=== PATIENT | male | born 1945 | race Caucasian/White ===

== ENCOUNTER → 2024-01-19 14:11 | Outpatient (REF) | payer MEDICARE, OTHER, SELFPAY | LOC: DHCBS MAIN 14:11 | PROVIDERS: ATTENDING PHYSICIAN Nuclear Medicine Nuclear Cardiology; FAMILY PHYSICIAN Internal Medicine | DX: I34.0 Nonrheumatic mitral (valve) insufficiency (principal) | CPT/HCPCS: 93306 ==

== ENCOUNTER → 2024-05-17 12:08 | Outpatient (REF) | payer MEDICARE, OTHER, SELFPAY ==
[2024-05-17 13:05] LABS: % Basophils 0.6 % (0-2); % Eosinophils 3.9 % (0-6); % Immature Granulocytes 0.1 % (0-0.5); % Lymphocytes 32.9 % (20.5-51.1); % Neutrophils 52.5 % (42.2-75.2); Absolute Basophils 0.1 10^3/uL (0-0.2); Absolute Eosinophils 0.3 10^3/uL (0-0.7); Absolute Lymphocytes 2.5 10^3/uL (1.2-3.4); Absolute Monocytes 0.8 10^3/uL (0.1-0.6); Hematocrit 36.2 % (39.0-52.0); Hemoglobin 12.4 g/dL (13.0-18.0); Mean Corp Hgb Conc. 34.3 g/dL (33.0-37.0); Mean Corpuscular Volume 93.3 fL (80.0-94.0); Mean Platelet Volume 10.1 fL (7.4-10.4); Nucleated Red Blood Cells % 0 % (-); Platelet Count 231 10^3/uL (130-400); Red Blood Cell Count 3.88 10^6/uL (4.70-6.10); Red Cell Dist. Width 13.2 % (11.5-14.5); Reticulocyte Count 1.4 % (0.4-2.8); White Blood Cell Count 7.7 10^3/uL (4.8-10.8)
[2024-05-17 13:33] LABS: ALT (SGPT) 19 U/L (0-50); AST (SGOT) 37 U/L (17-59); Albumin 4.4 g/dl (3.5-5.0); Alkaline Phosphatase 74 U/L (38-126); Blood Urea Nitrogen 22 mg/dl (9-20); Calcium 10.3 mg/dl (8.4-10.2); Carbon Dioxide 30 mmol/L (22-30); Chloride 100 mmol/L (98-107); Glucose 91 mg/dl (70-99); HDL Cholesterol 105 mg/dl; Iron 132 ug/dl (49-181); LDL Cholesterol, Calculated 84 mg/dl; Potassium 5.1 mmol/L (3.5-5.1); Sodium 139 mmol/L (135-145); Total Bilirubin 0.8 mg/dl (0.2-1.3); Total Cholesterol 198 mg/dl (50-199); Total Protein 7.3 g/dl (6.3-8.2); Triglyceride 45 mg/dl (10-149); Very Low Density Lipoprotein 9 mg/dl (0-30); eGFR > 60.00
[2024-05-17 13:42] LABS: Percent Saturation 53 % (20-50); Total Iron Binding Capacity 247 ug/dl (261-462)
[2024-05-17 14:07] LABS: PSA, Total - Screen 2.52 ng/ml (0.0-4.0); TSH 0.86 uIU/ml (0.47-4.68)
== END ==
LOC: REG 12:08
PROVIDERS: ATTENDING PHYSICIAN Internal Medicine
DX: J44.9 Chronic obstructive pulmonary disease, unspecified (principal); D64.89 Other specified anemias; K62.4 Stenosis of anus and rectum; Z93.3 Colostomy status; R79.89 Other specified abnormal findings of blood chemistry; F32.5 Major depressive disorder, single episode, in full remission; Z12.5 Encounter for screening for malignant neoplasm of prostate; Z00.00 Encounter for general adult medical examination without abnormal findings
CPT/HCPCS: 36415; 80053; 80061; 83540; 83550; 84443; 85025; 85045; G0103

== ENCOUNTER 2025-01-09 11:03 | Emergency (ER) | payer MEDICARE, OTHER, SELFPAY ==
[2025-01-09 11:08] VITALS: BP 114/74
[2025-01-09 11:29] VITALS: BP 127/66
[2025-01-09 11:30] VITALS: BMI 17.1
[2025-01-09 11:31] VITALS: BP 127/66
[2025-01-09 12:00] VITALS: BP 101/59; BP 127/52
--- NOTE | 2025-01-09 12:00 | ED.GENMED ---
History of Present Illness
General
Chief Complaint: Swelling
Time Seen by Provider: 01/09/25 11:50
History of Present Illness
History of Present Illness:
79-year-old male presents to the emergency department for evaluation of bilateral hand and bilateral feet swelling has been ongoing for the past 2 to 3 days. He denies any pain associated with this, swelling does not seem to extend into the lower
legs. Denies any chest pain or shortness of breath. On arrival was noted to be hypoxic however was not wearing his chronic oxygen, he is improved on supplemental O2.
Past History
Past History
ED Past Medical History: None
ED Past Surgical History: None
Review of Systems
Review of Systems
Allergies reviewed?: Yes
All Other Systems: ROS reviewed and negative except as documented in HPI and ROS
Phy Exam
Physical Exam
Physical Exam:
GEN: Well appearing, NAD, WDWN
Eyes: PERRLA, EOMs intact, no scleral icterus
HENT: NCAT, oral mucosa moist, no JVD, no cervical adenopathy.
Lungs: CTAB, no wheezes, rales, rhonchi, normal chest wall excursion
Cardiac: RRR, no M/R/G, no peripheral edema. Radial pulses 2+ bilat
Abdomen: S, NT, ND, NABS, no masses or hepatosplenomegaly
Neuro: AO x 3, no focal deficits to BUE/BLE, normal sensation throughout
MSK: No gross deformity or ecchymosis. No edema. No digital clubbing
Skin: Petechial/purpuric lesions widely distributed to the dorsal hands as well as dorsal feet bilaterally, there is diffuse edema to all 4 extremities, petechiae extending to the mid lower legs
Psych: Calm, cooperative, proper hygiene
Scores
Heart Failure Risk
Heart Failure Risk Score: Not Applicable
Course
Orders/Labs/Results
Orders:
Orders
01/09/25 12:26
CRP [C-Reactive Protein] Urgent
Complete Blood Count/With Diff Urgent
Comprehensive Metabolic Panel Urgent
ESR [Erythrocyte Sed Rate] Urgent
Abnormal Lab Results
01/09/25
12:26
RBC 3.73 L 10^6/uL
(4.70-6.10)
Hgb 11.4 L g/dL
(13.0-18.0)
Hct 34.5 L %
(39.0-52.0)
Absolute Lymphs (auto) 1.1 L 10^3/uL
(1.2-3.4)
Absolute Monos (auto) 0.9 H 10^3/uL
(0.1-0.6)
Absolute Eos (auto) 1.2 H 10^3/uL
(0-0.7)
Lymphocytes % 14.5 L %
(20.5-51.1)
Monocytes % 11.2 H %
(1.7-9.3)
Eosinophils % 15.3 H %
(0-6)
ESR 69 H mm/hour
(0-20)
Chloride 97 L mmol/L
(98-107)
Carbon Dioxide 36 H mmol/L
(22-30)
BUN 39 H mg/dl
(9-20)
Glucose 121 H mg/dl
(70-99)
C-Reactive Protein 79.00 H mg/L
(0.0-10.00)
01/09/25 12:26
01/09/25 12:26
Vital Signs
Initial and Last Documented VS:
Initial Vital Signs
Temp Pulse Resp BP Pulse Ox
97.9 F 51 18 114/74 87
01/09/25 11:08 01/09/25 11:08 01/09/25 11:08 01/09/25 11:08 01/09/25 11:08
Last Documented Vital Signs
Temp Pulse Resp BP Pulse Ox
98.2 F 84 18 125/76 94
01/09/25 14:30 01/09/25 14:30 01/09/25 14:30 01/09/25 14:30 01/09/25 14:30
MDM/Problems Addressed
MDM/Problems Addressed:
Highly suggestive of acute vasculitis. Inflammatory markers elevated but no evidence of anemia or thrombocytopenia. Will start steroid taper and refer back to primary care for further workup and evaluation
*Critical Care Note
Total Time (30-74mins, 75-104mins- exclusive of procedures): Not Applicable
ED Attending Note
-
Portions of this chart may have been created with voice recognition software.� Occasional wrong word or��sound alike� substitutions may have occurred due to the inherent limitations of voice recognition software.
Discharge Plan
Departure
Patient Disposition: Home (Routine Discharge)
Date of Disposition: 01/09/25
Time of Disposition: 13:45
Patient with high blood pressure during this ER visit?: No
Discharge Problem:
Vasculitis
Instructions: Vasculitis (DC)
Prescriptions:
New
prednisone 20 mg tablet
40 mg PO DIRECTED Qty: 18 0RF
Rx Instructions:
60mg PO x 3 days, then 40mg PO x 3 days, then 20mg PO x 3 days
No Action
celecoxib 200 MG capsule
200 mg PO DAILY
albuterol sulfate 1 PUFF HFA aerosol inhaler
2 puff inhalation PRN PRN (Reason: shortness of breath)
Fish Oil 1,600 MG/5 ML liquid
4,800 mg PO DAILY
azithromycin 250 mg Tablet
250 mg PO MOWEFR
mirtazapine 15 mg Tablet
15 mg PO HS
paroxetine HCl 40 mg Tablet
40 mg PO DAILY
Trelegy Ellipta 200-62.5-25 mcg Blister With Device
1 inh INHALATION DAILY
acetaminophen 325 mg Tablet
650 mg PO Q4HPRN PRN (Reason: Pain) Qty: 90 0RF
Referrals:
Willard Pruitt MD [Family Provider] -
Activity Restrictions/Additional Instructions:
Follow up with your primary doctor in 3-5 days
Interventions
Interventions:
*Risk Screen - Suicide Last Done: 01/09/25 11:08
*General Assessment Last Done: 01/09/25 11:32
*Neglect/Abuse Screening Last Done: 01/09/25 11:08
*ED COVID-19 Vaccine History Last Done: 01/09/25 11:32
*Nursing Disposition Last Done: 01/09/25 14:30
ED- Cardiac Assessment Last Done: 01/09/25 11:42
ED- Pulmonary Assessment Last Done: 01/09/25 11:42
ED-Skin Assessment Last Done: 01/09/25 11:42
Discharge Date and Time
Discharge Date/Time: 01/09/25 14:30
Print Language: CANADIAN
[2025-01-09 12:58] LABS: ALT (SGPT) 21 U/L (0-50); AST (SGOT) 26 U/L (17-59); Albumin 3.7 g/dl (3.5-5.0); Alkaline Phosphatase 66 U/L (38-126); Blood Urea Nitrogen 39 mg/dl (9-20); Calcium 9.6 mg/dl (8.4-10.2); Carbon Dioxide 36 mmol/L (22-30); Chloride 97 mmol/L (98-107); Estimated Creatinine Clearance 64 ml/min; Glucose 121 mg/dl (70-99); Potassium 4.6 mmol/L (3.5-5.1); Sodium 140 mmol/L (135-145); Total Bilirubin 0.7 mg/dl (0.2-1.3); eGFR > 60.00
[2025-01-09 13:00] VITALS: BP 125/63
[2025-01-09 13:14] LABS: % Eosinophils 15.3 % (0-6); % Immature Granulocytes 0.3 % (0-0.5); % Lymphocytes 14.5 % (20.5-51.1); % Monocytes 11.2 % (1.7-9.3); % Neutrophils 58.7 % (42.2-75.2); Absolute Eosinophils 1.2 10^3/uL (0-0.7); Absolute Lymphocytes 1.1 10^3/uL (1.2-3.4); Absolute Monocytes 0.9 10^3/uL (0.1-0.6); Absolute Neutrophils 4.5 10^3/uL (1.4-6.5); Hematocrit 34.5 % (39.0-52.0); Hemoglobin 11.4 g/dL (13.0-18.0); Mean Corpuscular Hgb 30.6 pg (27.0-31.0); Mean Corpuscular Volume 92.5 fL (80.0-94.0); Mean Platelet Volume 10.4 fL (7.4-10.4); Nucleated Red Blood Cells % 0 % (-); Platelet Count 200 10^3/uL (130-400); Red Blood Cell Count 3.73 10^6/uL (4.70-6.10); Red Cell Dist. Width 14.2 % (11.5-14.5); White Blood Cell Count 7.7 10^3/uL (4.8-10.8)
[2025-01-09 13:17] LABS: Erythrocyte Sed Rate 69 mm/hour (0-20)
[2025-01-09 14:30] VITALS: BP 125/76
== END 2025-01-09 14:30 | disposition home or self-care (01) ==
LOC: EMR 11:03
PROVIDERS: Physician Assistant; EMERGENCY PHYSICIAN Emergency Medicine; FAMILY PHYSICIAN Internal Medicine
DX: I77.6 Arteritis, unspecified (principal)
CPT/HCPCS: 99283; 80053; 85025; 85652; 86140

== ENCOUNTER → 2025-01-15 12:01 | Outpatient (REF) | payer MEDICARE, OTHER, SELFPAY ==
[2025-01-15 13:33] LABS: Creatine Phosphokinase < 20 U/L (55-170)
[2025-01-17 11:56] LABS: Alpha-1-Antitrypsin 153 mg/dL (90-200)
[2025-01-17 17:33] LABS: Rheumatoid Agg. Semi-quant 128 IU; Rheumatoid Agglutinin Positive (<10 IU)
[2025-01-17 23:57] LABS: Mitochondrial M2 Ab, IgG 15.6 Units (0.0-24.9)
[2025-01-18 00:52] LABS: ANA, IgG Reflex to HEp-2 Detected (None Detected)
[2025-01-19 08:51] LABS: ANA, HEp-2, IgG <1:80 (<1:80)
== END ==
LOC: REG 12:01
PROVIDERS: ATTENDING PHYSICIAN Internal Medicine
DX: I77.6 Arteritis, unspecified (principal); Z83.49 Family history of other endocrine, nutritional and metabolic diseases; J44.9 Chronic obstructive pulmonary disease, unspecified; J96.11 Chronic respiratory failure with hypoxia; R79.89 Other specified abnormal findings of blood chemistry
CPT/HCPCS: 36415; 82103; 82550; 86038; 86381; 86430; 86431

== ENCOUNTER → 2025-01-25 11:34 | Outpatient (REF) | payer MEDICARE, OTHER, SELFPAY ==
[2025-01-25 12:47] LABS: Urine Albumin 2+ (Neg - Trace); Urine Bilirubin Negative (Negative); Urine Character Clear (Clear); Urine Color Yellow; Urine Glucose Negative (Negative); Urine Ketone 1+ (Negative); Urine Leukocyte Negative (Negative); Urine Nitrite Negative (Negative); Urine Occult Blood Negative (Negative); Urine Urobilinogen Negative (Neg - 1+)
[2025-01-25 12:54] LABS: Urine Mucus Few
[2025-01-25 12:55] LABS: Urine Bacteria Few (Negative); Urine Calcium Oxalate Crystals Present; Urine Red Blood Cell 0-2 /HPF (0-2)
[2025-01-25 13:47] LABS: Erythrocyte Sed Rate 11 mm/hour (0-20)
[2025-01-25 14:01] LABS: Albumin 4.4 g/dl (3.5-5.0); Blood Urea Nitrogen 37 mg/dl (9-20); Calcium 10.2 mg/dl (8.4-10.2); Carbon Dioxide 37 mmol/L (22-30); Chloride 95 mmol/L (98-107); Glucose 89 mg/dl (70-99); Phosphorus 3.3 mg/dl (2.5-4.5); Potassium 4.1 mmol/L (3.5-5.1); Sodium 140 mmol/L (135-145); eGFR > 60.00
[2025-01-25 14:02] LABS: C-Reactive Protein < 5.00 mg/L (0.0-10.00)
== END ==
LOC: REG 11:34
PROVIDERS: ATTENDING PHYSICIAN Internal Medicine
DX: I77.6 Arteritis, unspecified (principal); J44.9 Chronic obstructive pulmonary disease, unspecified; J96.11 Chronic respiratory failure with hypoxia; R79.89 Other specified abnormal findings of blood chemistry
CPT/HCPCS: 36415; 80069; 81003; 81015; 85652; 86140

== ENCOUNTER → 2025-02-14 14:33 | Outpatient (REF) | payer MEDICARE, OTHER, SELFPAY ==
[2025-02-14 15:51] LABS: % Basophils 0.3 % (0-2); % Eosinophils 1.2 % (0-6); % Immature Granulocytes 0.4 % (0-0.5); % Lymphocytes 14.6 % (20.5-51.1); % Monocytes 7.1 % (1.7-9.3); % Neutrophils 76.4 % (42.2-75.2); Absolute Eosinophils 0.2 10^3/uL (0-0.7); Absolute Immature Granulocytes 0.1 10^3/uL (0-0.05); Absolute Neutrophils 10.5 10^3/uL (1.4-6.5); Hematocrit 40.2 % (39.0-52.0); Hemoglobin 13.2 g/dL (13.0-18.0); Mean Corp Hgb Conc. 32.8 g/dL (33.0-37.0); Mean Corpuscular Hgb 31.4 pg (27.0-31.0); Mean Corpuscular Volume 95.5 fL (80.0-94.0); Mean Platelet Volume 10.1 fL (7.4-10.4); Nucleated Red Blood Cells % 0 % (-); Platelet Count 213 10^3/uL (130-400); Red Blood Cell Count 4.21 10^6/uL (4.70-6.10); Red Cell Dist. Width 14.6 % (11.5-14.5); White Blood Cell Count 13.7 10^3/uL (4.8-10.8)
[2025-02-14 15:58] LABS: Erythrocyte Sed Rate 8 mm/hour (0-20)
[2025-02-14 16:01] LABS: Urine Albumin 2+ (Neg - Trace); Urine Bilirubin Negative (Negative); Urine Character Clear (Clear); Urine Color Yellow; Urine Glucose Negative (Negative); Urine Ketone Negative (Negative); Urine Leukocyte Negative (Negative); Urine Nitrite Negative (Negative); Urine Occult Blood Negative (Negative); Urine Specific Gravity 1.015 (<1.030); Urine Urobilinogen Negative (Neg - 1+); Urine pH 6.5 (5.0-9.0)
[2025-02-14 16:15] LABS: ALT (SGPT) 20 U/L (0-50); AST (SGOT) 28 U/L (17-59); Albumin 4.4 g/dl (3.5-5.0); Alkaline Phosphatase 62 U/L (38-126); Blood Urea Nitrogen 47 mg/dl (9-20); Calcium 10.6 mg/dl (8.4-10.2); Carbon Dioxide 39 mmol/L (22-30); Chloride 95 mmol/L (98-107); Glucose 106 mg/dl (70-99); Potassium 3.9 mmol/L (3.5-5.1); Sodium 143 mmol/L (135-145); Total Bilirubin 0.8 mg/dl (0.2-1.3); Total Protein 8.1 g/dl (6.3-8.2); eGFR > 60.00
[2025-02-14 16:25] LABS: Complement C3 87 mg/dl (88-165); IgA 515 mg/dl (70-400); IgG 1389 mg/dl (700-1600); IgM 358 mg/dl (40-230); Urine Squamous Cell 0-2 /LPF (Few)
[2025-02-14 16:26] LABS: Protein/creatinine Ratio 0.1; Urine Bacteria Few (Negative); Urine Protein 12 mg/dl; Urine Red Blood Cell 0-2 /HPF (0-2)
[2025-02-14 16:35] LABS: Vitamin D, 25-OH*** 38.6 ng/mL (30-80)
[2025-02-14 18:15] LABS: Hepatitis B Surface Antigen Negative (Negative)
[2025-02-14 18:33] LABS: Hepatitis B Core Ab, Total Negative (Negative); Hepatitis C Antibody Negative (Negative)
[2025-02-15 12:33] LABS: Rheumatoid Agglutinin Less Than 10 IU (<10 IU)
[2025-02-16 17:00] LABS: Angiotensin-1-converting Enzym 48 U/L (16-85)
[2025-02-16 23:10] LABS: SSA 52 (Ro)(ENA) Ab, IgG 2 AU/mL (0-40); SSA 60 (Ro)(ENA) Ab, IgG 0 AU/mL (0-40); SSB (La)(ENA) Ab, IgG 11 AU/mL (0-40)
[2025-02-16 23:28] LABS: Myeloperoxidase Antibody 0 AU/mL (0-19); Serine Protease-3, IgG 0 AU/mL (0-19)
[2025-02-17 00:03] LABS: ds-DNA Ab, IgG Reflex To Titer 6 IU (0-24)
[2025-02-17 01:36] LABS: ANA, IgG Reflex to HEp-2 Detected (None Detected)
[2025-02-17 02:32] LABS: CCP Antibody IgG/IgA 15 Units (0-19)
== END ==
LOC: RAD 14:33
PROVIDERS: ATTENDING PHYSICIAN Student in an Organized Health Care Education/Training Program; FAMILY PHYSICIAN Internal Medicine
DX: J44.9 Chronic obstructive pulmonary disease, unspecified (principal); M06.9 Rheumatoid arthritis, unspecified; M25.471 Effusion, right ankle; M25.472 Effusion, left ankle; R21 Rash and other nonspecific skin eruption; R70.0 Elevated erythrocyte sedimentation rate; R79.82 Elevated C-reactive protein (CRP); R89.8 Other abnormal findings in specimens from other organs, systems and tissues; Z51.5 Encounter for palliative care
CPT/HCPCS: 36415; 73120; 80053; 81003; 81015; 82164; 82306; 82570; 82784; 83516; 84156; 85025; 85652; 86038; 86140; 86160; 86200; 86225; 86235; 86430; 86704; 86803; 87340

== ENCOUNTER → 2025-02-16 11:40 | Outpatient (REF) | payer MEDICARE, OTHER, SELFPAY ==
[2025-02-18 04:00] LABS: Quantiferon Mitogen minus NIL 9.99 IU/mL; Quantiferon NIL 0.01 IU/mL; Quantiferon Plus TB2 minus NIL 0.01 IU/mL (<=0.34); Quantiferon TB Gold Plus Negative (Negative)
== END ==
LOC: REG 11:40
PROVIDERS: ATTENDING PHYSICIAN Student in an Organized Health Care Education/Training Program; FAMILY PHYSICIAN Internal Medicine
DX: E55.9 Vitamin D deficiency, unspecified (principal); J44.9 Chronic obstructive pulmonary disease, unspecified; M06.9 Rheumatoid arthritis, unspecified; M25.471 Effusion, right ankle; M25.472 Effusion, left ankle; R21 Rash and other nonspecific skin eruption; R70.0 Elevated erythrocyte sedimentation rate; R79.82 Elevated C-reactive protein (CRP); R89.8 Other abnormal findings in specimens from other organs, systems and tissues; Z51.5 Encounter for palliative care
CPT/HCPCS: 36415; 86480

== ENCOUNTER → 2025-03-09 15:02 | Outpatient (REF) | payer MEDICARE, OTHER, SELFPAY | LOC: RAD 15:02 | PROVIDERS: ATTENDING PHYSICIAN Student in an Organized Health Care Education/Training Program; FAMILY PHYSICIAN Internal Medicine | DX: J44.9 Chronic obstructive pulmonary disease, unspecified (principal); M06.9 Rheumatoid arthritis, unspecified; M81.0 Age-related osteoporosis without current pathological fracture | CPT/HCPCS: 77080 ==

== ENCOUNTER → 2025-05-02 15:57 | Outpatient (REF) | payer MEDICARE, OTHER, SELFPAY ==
[2025-05-02 17:00] LABS: Ionized Calcium 1.22 mMOL/L (1.15-1.33)
[2025-05-02 17:18] LABS: % Basophils 0.6 % (0-2); % Immature Granulocytes 0.3 % (0-0.5); % Lymphocytes 18.8 % (20.5-51.1); % Monocytes 7.7 % (1.7-9.3); % Neutrophils 70.6 % (42.2-75.2); Absolute Basophils 0.1 10^3/uL (0-0.2); Absolute Eosinophils 0.2 10^3/uL (0-0.7); Absolute Lymphocytes 1.8 10^3/uL (1.2-3.4); Absolute Monocytes 0.7 10^3/uL (0.1-0.6); Absolute Neutrophils 6.8 10^3/uL (1.4-6.5); Hematocrit 36.2 % (39.0-52.0); Hemoglobin 12.1 g/dL (13.0-18.0); Mean Corp Hgb Conc. 33.4 g/dL (33.0-37.0); Mean Corpuscular Hgb 30.9 pg (27.0-31.0); Mean Corpuscular Volume 92.3 fL (80.0-94.0); Mean Platelet Volume 10.2 fL (7.4-10.4); Nucleated Red Blood Cells % 0 % (-); Platelet Count 218 10^3/uL (130-400); Red Blood Cell Count 3.92 10^6/uL (4.70-6.10); Red Cell Dist. Width 13.6 % (11.5-14.5); White Blood Cell Count 9.6 10^3/uL (4.8-10.8)
[2025-05-02 17:21] LABS: Urine Albumin 1+ (Neg - Trace); Urine Bilirubin Negative (Negative); Urine Character Clear (Clear); Urine Color Yellow; Urine Glucose Negative (Negative); Urine Ketone Negative (Negative); Urine Leukocyte 1+ (Negative); Urine Nitrite Negative (Negative); Urine Occult Blood 1+ (Negative); Urine Specific Gravity 1.015 (<1.030); Urine Urobilinogen Negative (Neg - 1+)
[2025-05-02 17:27] LABS: D-Dimer 0.94 ug/mlFEU (0.00-0.50)
[2025-05-02 17:30] LABS: ALT (SGPT) 19 U/L (0-50); AST (SGOT) 31 U/L (17-59); Albumin 4.2 g/dl (3.5-5.0); Alkaline Phosphatase 56 U/L (38-126); Blood Urea Nitrogen 21 mg/dl (9-20); Carbon Dioxide 31 mmol/L (22-30); Chloride 98 mmol/L (98-107); Glucose 97 mg/dl (70-99); Potassium 4.2 mmol/L (3.5-5.1); Sodium 136 mmol/L (135-145); Total Bilirubin 0.9 mg/dl (0.2-1.3); Total Protein 7.2 g/dl (6.3-8.2); eGFR > 60.00
[2025-05-02 17:34] LABS: C-Reactive Protein < 5.00 mg/L (0.0-10.00)
[2025-05-02 17:40] LABS: Urine Protein 5 mg/dl
[2025-05-02 17:52] LABS: Vitamin D, 25-OH*** 33.8 ng/mL (30-80)
[2025-05-02 18:09] LABS: Urine Red Blood Cell 0-2 /HPF (0-2)
[2025-05-02 18:10] LABS: Urine White Cell 0-2 /HPF (0-5)
[2025-05-02 18:13] LABS: Erythrocyte Sed Rate 3 mm/hour (0-20)
[2025-05-02 19:14] LABS: Complement C3 72 mg/dl (88-165)
== END ==
LOC: REG 15:57
PROVIDERS: ATTENDING PHYSICIAN Student in an Organized Health Care Education/Training Program; FAMILY PHYSICIAN Internal Medicine; REFERRING PHYSICIAN Nurse Practitioner Family
DX: J44.9 Chronic obstructive pulmonary disease, unspecified (principal); M06.9 Rheumatoid arthritis, unspecified; M25.471 Effusion, right ankle; M25.472 Effusion, left ankle; R21 Rash and other nonspecific skin eruption; R70.0 Elevated erythrocyte sedimentation rate; R79.82 Elevated C-reactive protein (CRP); R89.8 Other abnormal findings in specimens from other organs, systems and tissues; Z51.5 Encounter for palliative care; E55.9 Vitamin D deficiency, unspecified
CPT/HCPCS: 36415; 80053; 81003; 81015; 82306; 82330; 82570; 82784; 83520; 83521; 83970; 84155; 84156; 84165; 85025; 85379; 85652; 86140; 86160; 86225; 86334; 86335

== ENCOUNTER → 2025-05-03 15:39 | Outpatient (REF) | payer MEDICARE, OTHER, SELFPAY | LOC: RAD 15:39 | PROVIDERS: ATTENDING PHYSICIAN Nurse Practitioner Family | DX: R79.1 Abnormal coagulation profile (principal); R06.02 Shortness of breath | CPT/HCPCS: 71275; Q9967 ==

== ENCOUNTER → 2025-05-20 13:22 | Outpatient (REF) | payer MEDICARE, OTHER, SELFPAY | LOC: RAD 13:22 | PROVIDERS: ATTENDING PHYSICIAN Nurse Practitioner Family; FAMILY PHYSICIAN Internal Medicine | DX: R91.1 Solitary pulmonary nodule (principal) | CPT/HCPCS: 71250 ==

== ENCOUNTER 2025-06-28 10:34 | Inpatient (IN) | payer MEDICARE, OTHER, SELFPAY ==
[2025-06-21 14:03] VITALS: BMI 18.3
[2025-06-21 14:31] LABS: Hematocrit 37.9 % (39.0-52.0); Hemoglobin 12.8 g/dL (13.0-18.0); Mean Corp Hgb Conc. 33.8 g/dL (33.0-37.0); Mean Corpuscular Volume 92.4 fL (80.0-94.0); Platelet Count 252 10^3/uL (130-400); Red Cell Dist. Width 13.5 % (11.5-14.5)
[2025-06-21 14:38] LABS: INR 0.95; PT 13.2 Sec (11.4-14.6)
[2025-06-21 14:39] LABS: APTT 29.3 Sec (23.4-35.0)
[2025-06-21 14:52] LABS: Blood Urea Nitrogen 18 mg/dl (9-20); Calcium 9.8 mg/dl (8.4-10.2); Carbon Dioxide 36 mmol/L (22-30); Chloride 97 mmol/L (98-107); Estimated Creatinine Clearance 53 ml/min; Glucose 79 mg/dl (70-99); Potassium 4.2 mmol/L (3.5-5.1); Sodium 136 mmol/L (135-145); eGFR > 60.00
[2025-06-27] VITALS (23 sets, daily range): BP systolic 98–148; BP diastolic 48–80; BMI 16.8; BMI 17.3
[2025-06-27] MEDS: VENTOLIN NEBULES 2.5 MG INH (10:44)
[2025-06-27] MEDS: NSS 500 IV (11:07)
--- NOTE | 2025-06-27 14:22 | HPS.HSE ---
Addendum entered and electronically signed by Tj Mendoza MD 06/27/25 15:10:
EKG: ST-elevations in leads III and aVF, with TWI in lateral precordial leads. stat Trop. urgent Cardiology evaluation.
Original Note:
Family Physician
-
Family Physician: Willard Pruitt
Chief Complaint
-
Massive hemoptysis
History of Present Illness
80 y/o M, hx of COPD, lung nodule, former smoker, presented today for same day Bronchoscopy procedure for RLL nodule biopsy. Patient was noted to have massive hemoptysis towards the end of the procedure; with clots passed. Patient was hypotensive
and bradycardic. Patient required 10 mL epi and thrombin for bleeding control along with epi/ephedra and TXA by anesthesiology. Hemostasis was obtained. Patient was kept intubated during procedure for airway protection. Hospitalist service consulted
for ICU admission. Currently patient intubated, sedated. Not requiring pressors.
Medical History
Past Medical History
Past Medical History: Reports Other (COPD, lung nodule, former smoker,)
Past Surgical History: Reports Orthopedic
Social History
Unable to obtain full social history at this time due to: Patient Intubation
Tobacco: Former Smoker
Family History
Family History: Not pertinent
Allergies / Home Medications
Allergies reflects when Allergies were last updated in [employer].
Home Medications with original date entered in [employer]
Allergy/Medication List:
Allergies
Allergy/AdvReac Type Severity Reaction Status Date / Time
No Known Allergies Allergy Verified 06/27/25 10:57
Home Medications
albuterol sulfate 90 mcg/actuation aerosol inhaler 2 puff inhalation PRN PRN shortness of breath 07/06/20
celecoxib 200 mg capsule 200 mg PO DAILY Anti-Inflammatory 07/06/20
omega 1-bun-ivd-fish oil 1,600 mg-500 mg-800 mg/5 mL oral liquid (Fish Oil) 4,800 mg PO DAILY Supplement 07/06/20
azithromycin 250 mg tablet 250 mg PO MOWEFR Infection 08/21/23
fluticasone fur. 200 mcg-umeclid 62.5 mcg-vilant 25 mcg inhalat.powder (Trelegy Ellipta) 1 inh inhalation DAILY Lung/Breathing Issues 08/21/23
mirtazapine 15 mg tablet 15 mg PO HS Depression 08/21/23
paroxetine HCl 40 mg tablet 40 mg PO DAILY Depression 08/21/23
acetaminophen 325 mg tablet 650 mg (2 x 325 mg) PO Q4HPRN PRN Pain #90 tabs 08/28/23
prednisone 20 mg tablet 10 mg PO DAILY 06/22/25
ciclopirox 8 % topical solution 1 applic topical HS 06/27/25
hydroxychloroquine 200 mg tablet 200 mg PO DAILY 06/27/25
Review of Systems
-
Unable to obtain full review of systems at this time due to: Patient Intubation
Physical Exam
Vital Signs
Vital Signs
Temp Pulse Resp BP Pulse Ox
98.4 F 68 17 148/65 96
06/27/25 10:51 06/27/25 10:51 06/27/25 11:00 06/27/25 10:51 06/27/25 11:00
Physical Exam
General: No Apparent Distress and Intubated
HEENT: NormoCephalic, Anicteric and Other (ET tube with some schedule hanger blood)
Respiratory: Clear
Cardiac: S1/S2 and Regular Rhythm
Neuro: Sedated
Psych: Calm
Laboratory Results
-
06/21/25 13:29
06/21/25 13:29
Laboratory Results
PT 13.2 Sec (11.4-14.6) 06/21/25 13:29
INR 0.95 06/21/25 13:29
APTT 29.3 Sec (23.4-35.0) 07/29/25 13:29
Data Reviewed
-
Lab Data: Labs Reviewed by me
Impression/Plan
-
Assessment:
Massive hemoptysis during routine bronchoscopy for RLL nodule
- requiring Epi/Thrombin during procedure to control bleeding; also received Ephedra/Epi/TXA by Anesthesiology
- Intubated/sedated and will transfer to ICU
- ICU consult
- stat labs and serial CBC
- monitor for any further bleeding
- follow path of nodule
Bradycardia during procedure
- EKG with 1st degree AV block
- monitor tele
Hx of COPD
Hx of Former smoker
DVT ppx: SCDs
Code: Full
Total Critical Care Time 60 minutes. I was immediately available to the patient and staff. I personally examined, reviewed labs, diagnostic images/reports, interpretations, treatment plans, discussed patient care with other providers and family
or caregivers (if patient is unable to make decisions), entered orders as appropriate and documented the medical record.
--- NOTE | 2025-06-27 14:28 | W.PN.UPDATE ---
Update Note
Progress Note Update
At the end of robotic bronchoscopy right before EBUS bronchoscopy was going to be performed, anesthesia lowered PEEP down to 5 per my instruction which then led to hypotension with SBP in the 30s, bradycardia with HR down to 30s, and possible heart
block seen on office nurse. Sats remained 98% and peak pressures remained <30. Bronchoscope was removed, and patient was turned into Trendelenburg position, he was given 10mg ephedrine x2, epi x 10mg, TXA 1000mg, glycopyrrolate 0.2mg and
multiple pushes of Brett-Synephrine (total of 20 mL were given throughout this entire hemodynamic instability event). Of note, he had been on brett drip throughout most of today's case (brett was on at 50mcg/min prior to his HDN instability starting).
Twelve-lead EKG was then obtained, and showed sinus rhythm without evidence of block, and there was ST-elevations in leads III and aVF, with TWI in lateral precordial leads. Recommend cardiology consult given these concerning EKG findings. Of
note, at the same time he had appeared mottled.
I then went back into the airway with the diagnostic bronchoscope and found that there was significant bleeding seen throughout the tracheobronchial tree with clots formed. Diagnostic scope exchanged with therapeutic scope, and I was able to
suction out all of the clots, and administered multiple 10cc syringes of chilled saline (30cc total) in addition to epinephrine (0.1mg/mL) which was instilled into the bronchoscope x 2 (5 mL into right mainstem bronchus, and 5mL into RLL bronchus).
At the conclusion I administered thrombin into the right lower lobe where the biopsy was performed. This area was not actively bleeding at the end of the procedure, and all airways were patent down to segmental bronchi level.
Given this event, anesthesia not comfortable extubating the patient - I agree with this. Patient to be admitted to the ICU for further monitoring. Hopefully he can be extubated by tomorrow assuming no additional bleeding from airway is seen. Will
defer to procurement internship if repeat surveillance bronchoscopy is needed prior to extubation.
Patient's was updated, and all questions were answered. Primary hospitalist, Dr. Mendoza, made aware of situation as well as the Electrotyper Helper, Dr. Anderson.
--- NOTE | 2025-06-27 14:48 | CON.INTV ---
Consultation
Consultation Request
Date/Time Consultation Requested: 06/27/2025
Date/Time Consultation Performed: 06/27/2025
Requesting Provider: Dr. Mendoza
Performing Provider: Dr. Raymond Anderson
Reason for Consultation: Massive hemoptysis-iatrogenic postbiopsy
Medical History
-
History of Present Illness:
80-year-old man with past medical history significant for COPD, obstructive sleep apnea, osteoarthritis, BPH, former smoker stopped in 2019, came to the procedure unit and underwent robotic guided bronchoscopy for biopsy of 1.1 right lower lobe
pulmonary nodule of about 8 mm from a CAT scan 04/2025.
Procedure GERD complicated by severe hemoptysis. Discussed with Dr. Dee bronchoscopies, clots were suctioned. Cold saline, epinephrine were instilled into the airway. Thrombin was instilled into the right lower lobe where the biopsy was
performed.
Bleeding subsided per report.
Patient developed hypotension, bradycardic with possible heart block. Patient remained on Brett-Synephrine through the case due to hemodynamic instability. Patient developed some ST changes on precordial leads.
Currently intubated, sedated on mechanical ventilation.
Past Medical History
Past Medical History: Other (See assessment and plan)
Social History
Tobacco: Former Smoker (Quit in 2018)
Alcohol: None
Drug: None
Family History
Family History: Reviewed & Not Pertinent
Allergies / Home Medications
Allergies
Allergy/AdvReac Type Severity Reaction Status Date / Time
No Known Allergies Allergy Verified 06/27/25 10:57
Home Medications
�Medication �Instructions �Recorded �Confirmed �Last Taken �Type
albuterol sulfate 90 mcg/actuation 2 puff inhalation PRN PRN 07/06/20 06/27/25 06/26/25 History
aerosol inhaler shortness of breath
celecoxib 200 mg capsule 200 mg PO DAILY Anti-Inflammatory 07/06/20 06/27/25 06/24/25 History
omega 9-kvv-qom-fish oil 1,600 4,800 mg PO DAILY Supplement 07/06/20 06/27/25 06/24/25 History
mg-500 mg-800 mg/5 mL oral liquid
(Fish Oil)
azithromycin 250 mg tablet 250 mg PO MOWEFR Infection 08/21/23 06/27/25 06/24/25 History
fluticasone fur. 200 mcg-umeclid 1 inh inhalation DAILY 08/21/23 06/27/25 06/26/25 History
62.5 mcg-vilant 25 mcg Lung/Breathing Issues
inhalat.powder (Trelegy Ellipta)
mirtazapine 15 mg tablet 15 mg PO HS Depression 08/21/23 06/27/25 06/26/25 History
paroxetine HCl 40 mg tablet 40 mg PO DAILY Depression 08/21/23 06/27/25 06/26/25 History
acetaminophen 325 mg tablet 650 mg (2 x 325 mg) PO Q4HPRN PRN 08/28/23 06/27/25 Unknown Rx
Pain #90 tabs
prednisone 20 mg tablet 10 mg PO DAILY 06/22/25 06/27/25 06/26/25 History
ciclopirox 8 % topical solution 1 applic topical HS 06/27/25 06/27/25 06/26/25 History
hydroxychloroquine 200 mg tablet 200 mg PO DAILY 06/27/25 06/27/25 06/26/25 History
Review of Systems
-
Unable to Obtain full review of systems at this time due to: Patient Intubation
Vitals / Labs / Diagnostic Testing
Vital Signs
Temp Pulse Resp BP Pulse Ox
98.4 F 68 17 148/65 96
06/27/25 10:51 06/27/25 10:51 06/27/25 11:00 06/27/25 10:51 06/27/25 11:00
Diagnostic Testing:
Physical Exam
-
HEENT: Normocephalic and Other (ET tube in place without secretions)
Cardiovascular: S1/S2
Respiratory: Non-Labored Respirations and Other (Prolonged expiratory phase)
GI: Soft and Non Distended
Neurology: Other (Somnolent, moving 4 extremities.) and Other (Occasionally following commands.)
Skin: Warm
General: Comfortable
Assessment
-
80-year-old man with past medical history noted. Admitted from the bronchoscopy suite. Underwent robotic bronchoscopy complicated by massive hemoptysis requiring intubation mechanical ventilation. Discussed with Dr. Dee, thrombin,
epinephrine and chilled saline were instilled in the right lower lobe. Able to achieve control of hemorrhage. Patient did have hypotension, bradycardia and EKG changes. Patient remained intubated after the procedure for workup.
Massive jrgyhliztg-isijdlrtnr-wibbiutqnxly from right lower lobe biopsy via robotic bronchoscopy
Hypoxemic respiratory failure secondary to above requiring intubation and mechanical ventilation
Shock/hypotension-distributive.
Abnormal EKG-rule out acute coronary syndrome.
Conditions present prior admission:
COPD-emphysema phenotype-severe/3 L of supplemental oxygen at baseline.
FEV1 32% (0.79 L) total lung capacity 86%. DLCO 6%--. 05/02/2025
Trelegy
Follows
Normal alpha-1 antitrypsin level and phenotype FM
Former smoker quit in 2019- uses Vaping pen daily
Obstructive sleep apnea-intolerant to CPAP
Spinal stenosis
Mild and aortic regurgitation
Incomplete right bundle branch block
BPH
Osteoarthritis-on 10 mg of prednisone per rheumatology
Assessment and plan:
Critically ill: Remains intubated on mechanical ventilation.
No significant bleeding through the ET tube.
Mechanical ventilation settings reviewed: Pulmonary mechanics are adequate.
No evidence for airflow obstruction.
Obtain chest x-ray
Will maintain sedation with propofol/fentanyl IV pushes as needed until tomorrow to assure bleeding has stopped.
Obtain ABG
-
Shock: Likely distributive: Brett-Synephrine has been weaned off.
Gentle IV fluids
It is noted that this patient is on 10 mg of prednisone chronically. May need to consider stress doses of IV corticosteroids with hydrocortisone 50 mg IV every 8-will monitor vital signs closely.
Obtain CBC rule out anemia
Will obtain BMP to follow-up on creatinine
-
Abnormal EKG/bradycardia and hypotension:
Hypotension has resolved.
EKG reviewed suggestive of possible ischemia.
Obtain troponins/BNP
Most recent echocardiogram 01/19/2024: Normal LVEF. Normal right ventricular size and function. Mild aortic regurgitation. Moderate TR. Estimated pulmonary artery pressure 57 mmHg. No pericardial effusion.
Cardiology has been consulted
-
From a COPD perspective: Patient not bronchospastic.
Pulmonary mechanics do not suggest bronchospasm or increased airway resistance
Prolonged expiratory phase
Comfortable on current mechanical ventilation set
Will start DuoNebs
Hold Trelegy while intubated.
-
Monitor for infection
No indication for antibiotic
-
N.p.o. for now
Head of the bed elevation
DVT prophylaxis with SCDs given hemoptysis
-
Case discussed with Dr. Dee bronchoscopies as well as primary team.
-
Critical care statement: A total of 45 minutes of critical care time was provided for this patient today. This includes management of unstable vital signs, evaluation of the patient at bedside, reviewing the patient's pertinent medical records
including ventilator settings, arterial blood gases, radiographs, microbiology, laboratory evaluations and discussion with primary team, critical care nursing, and respiratory therapy.
[2025-06-27] MEDS: SUBLIMAZE 50 MCG IV ×4 (15:08→19:46)
[2025-06-27] MEDS: DIPRIVAN 100 IV (15:18)
[2025-06-27] MEDS: LR 1000 IV (15:35)
--- NOTE | 2025-06-27 15:40 | CON.CAR ---
Consultation
Consultation Request
Date/Time Consultation Requested: 06/27/2025
Date/Time Consultation Performed: 06/27/2025
Requesting Provider: Dr. Dee
Performing Provider: Gail Zafar PA-C for Dr. Peace
Reason for Consultation: Bradycardia, hypotension, EKG changes during bronchoscopy
Medical History
-
History of Present Illness:
HPI: Aleksandr is an 80-year-old male with past medical history of COPD, lung nodule, and incomplete RBBB. Presented to [facility] for robotic guided bronchoscopy for biopsy of right lower lobe pulmonary nodule. Procedure was complicated by severe
hemoptysis/bleeding. With hemoptysis, patient became hypotensive and bradycardic with heart rate into the 30s. Possible heart block noted. He required epinephrine and thrombin and clots were suctioned. EKG checked at the time of the event and
showed sinus rhythm with ST elevations noted in leads II, III, and aVF. T wave inversions noted laterally. Improved on repeat EKG. Bleeding controlled and patient improved w/ stabilization in HR and BP. Cardiology consulted given EKG changes.
Patient remains intubated at this time, but reports he has no chest pain.
PMH:
COPD
Lung nodule
Incomplete RBBB
Past Medical History
Past Medical History: Other (In HPI)
Past Surgical History: Other (L CANDACE, b/l TKA, colostomy)
Social History
Tobacco: Former Smoker
Alcohol: Daily
Personal:
Living: With Family
Family History
Family History: CAD
Allergies / Home Medications
Allergy/AdvReac Type Severity Reaction Status Date / Time
No Known Allergies Allergy Verified 06/27/25 10:57
�Medication �Instructions �Recorded �Confirmed �Type
albuterol sulfate 90 mcg/actuation 2 puff inhalation PRN PRN 07/06/20 06/27/25 History
aerosol inhaler shortness of breath
celecoxib 200 mg capsule 200 mg PO DAILY Anti-Inflammatory 07/06/20 06/27/25 History
omega 6-nbx-reu-fish oil 1,600 4,800 mg PO DAILY Supplement 07/06/20 06/27/25 History
mg-500 mg-800 mg/5 mL oral liquid
(Fish Oil)
azithromycin 250 mg tablet 250 mg PO MOWEFR Infection 08/21/23 06/27/25 History
fluticasone fur. 200 mcg-umeclid 1 inh inhalation DAILY 08/21/23 06/27/25 History
62.5 mcg-vilant 25 mcg Lung/Breathing Issues
inhalat.powder (Trelegy Ellipta)
mirtazapine 15 mg tablet 15 mg PO HS Depression 08/21/23 06/27/25 History
paroxetine HCl 40 mg tablet 40 mg PO DAILY Depression 08/21/23 06/27/25 History
acetaminophen 325 mg tablet 650 mg (2 x 325 mg) PO Q4HPRN PRN 08/28/23 06/27/25 Rx
Pain #90 tabs
prednisone 20 mg tablet 10 mg PO DAILY 06/22/25 06/27/25 History
ciclopirox 8 % topical solution 1 applic topical HS 06/27/25 06/27/25 History
hydroxychloroquine 200 mg tablet 200 mg PO DAILY 06/27/25 06/27/25 History
Review of Systems
-
History Source: Patient
All other systems: Negative unless noted
Physical Exam
Vital Signs
Temp Pulse Resp BP Pulse Ox
98.1 F 104 14 124/67 99
06/27/25 15:36 06/27/25 15:30 06/27/25 15:30 06/27/25 15:30 06/27/25 15:30
Physical Exam
General: No Apparent Distress and Intubated
HEENT: Anicteric
Respiratory: Non Labored Respirations
Cardiac: S1/S2 and Regular Rhythm
Musculoskeletal: No Clubbing, No Cyanosis and No Edema
Skin: Warm and Dry
Neuro: Nonfocal/Grossly Intact
Psych: Calm
Impression / Plan
-
PCP:Dr. Pruitt
Orthotics Technician: Dr. Main
Impression:
Presented for bronchoscopy
Hemoptysis
Bradycardia, hypotension in the setting of hemoptysis
EKG changes, w/ ST elevations inferiorly, improving on repeat
COPD
Lung nodule
Incomplete RBBB
Echo 01/19/2024: EF 63%, mild MR, mild AR, mod TR, estimated PAP 57 mmHg
Plan:
-Patient has known RLL pulmonary nodule and presented for bronchoscopy 06/27. During procedure had severe hemoptysis and became bradycardic with concern for heart block.
-HR into the 30s transiently w/ hypotension noted. On tiago throughout procedure and required epinephrine and thrombin injections. Bleeding resolved and HR and BP improved.
-HR stable in the 100s, SR with PACs, on telemetry.
-EKG reviewed during event, ST elevations noted in leads II, III, and AVF w/ lateral T wave inversions. Improved on follow up EKG.
-Troponin and proBNP checked and pending. Trend trop to peak.
-Check urgent echo. Prior echo 12/2023 noted preserved EF with mild MR.
-No prior stress test. Was not complaining of any anginal symptoms at time of cardiac clearance visit. No chest pain currently. Will need eventual ischemic evaluation.
-Hgb stable at 10.4. Continue to follow.
-Remains intubated at this time.
HPI: Aleksandr is an 80-year-old male with past medical history of COPD, lung nodule, and incomplete RBBB. Presented to [facility] for robotic guided bronchoscopy for biopsy of right lower lobe pulmonary nodule. Procedure was complicated by severe
hemoptysis/bleeding. With hemoptysis, patient became hypotensive and bradycardic with heart rate into the 30s. Possible heart block noted. He required epinephrine and thrombin and clots were suctioned. EKG checked at the time of the event and
showed sinus rhythm with ST elevations noted in leads II, III, and aVF. T wave inversions noted laterally. Improved on repeat EKG. Bleeding controlled and patient improved w/ stabilization in HR and BP. Cardiology consulted given EKG changes.
Patient remains intubated at this time, but reports he has no chest pain.
Data Reviewed
-
EKG: Tracing Personally Visualized and interpreted
Radiology: Report Reviewed by me
Labs: Labs Reviewed by me
Old Records: Reviewed
[2025-06-27 15:50] LABS: INR 1.18; PT 15.3 Sec (11.4-14.6)
[2025-06-27 15:52] LABS: APTT 30.2 Sec (23.4-35.0)
[2025-06-27 15:53] LABS: Blood Urea Nitrogen 20 mg/dl (9-20); Calcium 8.0 mg/dl (8.4-10.2); Carbon Dioxide 26 mmol/L (22-30); Chloride 103 mmol/L (98-107); Estimated Creatinine Clearance 60 ml/min; Glucose 113 mg/dl (70-99); Potassium 4.2 mmol/L (3.5-5.1); Sodium 135 mmol/L (135-145); Triglycerides 45 mg/dl (10-149); eGFR > 60.00
[2025-06-27 15:57] LABS: Hematocrit 31.5 % (39.0-52.0); Hemoglobin 10.4 g/dL (13.0-18.0); Mean Corp Hgb Conc. 33.0 g/dL (33.0-37.0); Mean Corpuscular Volume 93.5 fL (80.0-94.0); Platelet Count 166 10^3/uL (130-400); Red Cell Dist. Width 13.2 % (11.5-14.5)
[2025-06-27] MEDS: DUONEB 3 ML INH ×2 (15:58→19:23)
--- NOTE | 2025-06-27 16:00 | PTCARENOTE ---
Pt received intubated after bronch to ICU bed 3359. VSS. Pt woke up and immediately attempted to pull out ETT. Pt restless and grimacing. Sedation provided. See JAN. Restraints applied. ETT advanced per Dr Anderson after CXR review. Bloody
secretions suctioned from ETT. Condom cath applied. Colotomy appliance intact. IVF infusing per order. All assessments as charted.
[2025-06-27 16:01] LABS: B.E. 1.2 mmol/L; HCO3 27.9 mmol/L (21-28); O2 Saturation % 99.3 % (94-98); PCO2 53 mmHg (35-48); PO2 91 mmHg (83-108)
[2025-06-27 16:11] LABS: Troponin I 0.025 ng/ml
--- NOTE | 2025-06-27 16:27 | W.PN.UPDATE ---
Update Note
Progress Note Update
Chest x-ray reviewed: ET tube at the level of the clavicle. Will be advanced 4 cm.
Currently patient getting tidal volumes.
Adequate pulmonary mechanics.
No recurrence of hemoptysis.
Infiltrates on chest x-ray may be a reflection of hemorrhage/status post biopsy.
No evidence for pneumothorax.
-
First troponin negative
Discussed with cardiology, echocardiogram to be repeated
Troponin will be trended
-
Maintain sedation for now. Plans for spontaneous breathing trial early tomorrow
[2025-06-27 18:49] LABS: Hematocrit 30.3 % (39.0-52.0); Hemoglobin 10.1 g/dL (13.0-18.0); Mean Corp Hgb Conc. 33.3 g/dL (33.0-37.0); Mean Corpuscular Volume 93.2 fL (80.0-94.0); Platelet Count 166 10^3/uL (130-400); Red Cell Dist. Width 13.3 % (11.5-14.5)
[2025-06-27 19:10] LABS: Troponin I 0.044 ng/ml
[2025-06-27] MEDS: SUBLIMAZE 100 IV (19:47)
--- NOTE | 2025-06-27 20:48 | PTCARENOTE ---
Pt received at 19:00, intubated and sedated on propofol, pt sedate, but continues to indicate pain. Unable to quantify--CPOT 5-6. Fentanyl gtt started as ordered. Nods y/n appropriately. SR w/ occasional PACs. HR 60s-70s. #9 ETT @ 24cm, AC
12/500/40%/+5, pulse ox 100%. Breath sounds diminished t/o. R colostomy intact. CC in place, no urine output noted at this time. Safe environment maintained, call rich within reach, pt repositioned.
[2025-06-28] VITALS (60 sets, daily range): BP systolic 85–152; BP diastolic 47–97; BMI 18.0
[2025-06-28] MEDS: SUBLIMAZE 50 MCG IV (04:32)
[2025-06-28] MEDS: LR 1000 IV (04:33)
[2025-06-28 04:59] LABS: B.E. 1.2 mmol/L; HCO3 27.1 mmol/L (21-28); O2 Saturation % 100.0 % (94-98); PCO2 48 mmHg (35-48); PO2 162 mmHg (83-108)
[2025-06-28 05:01] LABS: Hematocrit 27.2 % (39.0-52.0); Hemoglobin 9.2 g/dL (13.0-18.0); Mean Corp Hgb Conc. 33.8 g/dL (33.0-37.0); Mean Corpuscular Volume 92.5 fL (80.0-94.0); Platelet Count 154 10^3/uL (130-400); Red Cell Dist. Width 13.4 % (11.5-14.5)
[2025-06-28 05:27] LABS: Blood Urea Nitrogen 23 mg/dl (9-20); Calcium 7.6 mg/dl (8.4-10.2); Carbon Dioxide 29 mmol/L (22-30); Chloride 104 mmol/L (98-107); Estimated Creatinine Clearance 62 ml/min; Glucose 111 mg/dl (70-99); Potassium 4.7 mmol/L (3.5-5.1); Sodium 135 mmol/L (135-145); eGFR > 60.00
[2025-06-28] MEDS: DUONEB 3 ML INH ×2 (07:18→11:15)
--- NOTE | 2025-06-28 07:53 | W.PN.ANS.POP ---
Anesthesia Post Operative
- Anesthesia Post Op Note
Vital Signs Stable-See Nursing Note: Yes
Airway Patent: Yes
Adequate Pain Control: Yes
Change in Mental Status: No
Current Postoperative Nausea & Vomiting: No
Anesthesia Complications: No
General Anesthetic Recall: No
Unplanned Admission: No
Post Op Hydration Adequate: Yes
--- NOTE | 2025-06-28 08:00 | W.PN.HOSP.TC ---
Addendum entered and electronically signed by Latoya Colon MD 06/29/25 03:21:
Code status updated to DNR as noted Case Aide 06.28 update note
Original Note:
Today's Communication/Plan
-
see a/p
Assessment / Plan
Assessment / Plan
Physical Exam
General: no acute distress, appears relatively comfortable
HEENT: NormoCephalic, Anicteric, Intubated
Respiratory: Clear to auscultation b/l
Cardiac: S1/S2 and Regular Rhythm, no murmurs/rubs/gallops
Abd: soft nontender bowel sounds present
Neuro: Awake Alert following simple commands
Psych: Calm
80M COPD former smoker RLL nodule Vasculitis Depression here for bronchoscopy nodule bx complicated by severe hemoptysis admitted to ICU intubated for further evaluation treatment. Procedure was further complicated with EKG changes transient
inferior ST elevation and subsequent Troponin elevation.
Massive hemoptysis during routine bronchoscopy for RLL nodule
- required Epi/Thrombin during procedure to control bleeding; also received Ephedra/Epi/TXA by Anesthesiology
- Intubated/sedated transferred to ICU
- ICU consult appreciated POD#1 did well w/ spontaneous breathing trials and was later extubated
- Speech VSE eval appreciated high risk for aspiration recommended NPO, patient however aware of swallowing dysfunction/associate risk and wishes to continue with regular diet.
- H&H stable
- pathology nodule pending
Bradycardia, transient inferior ST elevations during procedure
Troponin Elevation suspect Non-ischemic Myocardial Injury
- EKG with 1st degree AV block
- ECHO appreciated EF 55-60% mild moderate AR moderate Severe Tricuspid regurgitation
- Chest Pain free
- Cardio eval appreciated
Hx of COPD baseline oxygen supplementation 3-4L as per family
Hx of Former smoker
Hx Vasculitis
-home azithromycin and steroid restarted
DVT ppx: SCDs
Code: Full
Discussed with patient, patient's Halle (retired RN) and daughter Trevor (RN)
I spent a total of 50 minutes with the patient or on the floor. More than 50% of this time involved counseling and coordination of care.
Anticipated Discharge: 24 - 48 hours
Subjective/Interval History
-
Date of Service: June 28, 2025
Seen and examined at bedside in no acute distress resting comfortably in bed. Intubated but calm responsive following simple commands able to answer to yes/no questions by nodding/shaking head.
Objective Data
-
Labs:
Laboratory Results
06/28/25 06/28/25
04:46 04:51
WBC 8.3
Hgb 9.2 L
Hct 27.2 L
Plt Count 154
HCO3 27.1
Sodium 135
Potassium 4.7
Chloride 104
Carbon Dioxide 29
BUN 23 H
Creatinine 0.7
Glucose 111 H
Calcium 7.6 L
Vital Signs:
Vital Signs
Temp Pulse Resp BP Pulse Ox
97.9 F 67 12 98/52 99
06/27/25 22:50 06/28/25 07:21 06/28/25 07:21 06/28/25 07:00 06/28/25 07:21
I&O
06/27/25 06/28/25 06/29/25
06:59 06:59 06:59
Intake Total 1189.8 / 1189.8
Output Total 450 / 450
Balance 739.8 / 739.8
--- NOTE | 2025-06-28 08:50 | W.PN.INTV ---
Today's Communication / Plan
Recommendations
Spontaneous breathing trial to extubate
Discontinue sedation
Continue nebulizer for now
Continue to trend troponins
Restart prednisone upon extubation
Assessment
-
80-year-old man with past medical history noted. Admitted from the bronchoscopy suite. Underwent robotic bronchoscopy complicated by massive hemoptysis requiring intubation mechanical ventilation. Discussed with Dr. Dee, thrombin,
epinephrine and chilled saline were instilled in the right lower lobe. Able to achieve control of hemorrhage. Patient did have hypotension, bradycardia and EKG changes. Patient remained intubated after the procedure for workup.
Massive tgrcnrsisw-[id number] from right lower lobe biopsy via robotic bronchoscopy
Hypoxemic respiratory failure secondary to above requiring intubation and mechanical ventilation
Shock/hypotension-distributive.
Abnormal EKG-rule out acute coronary syndrome.
Conditions present prior admission:
COPD-emphysema phenotype-severe/3 L of supplemental oxygen at baseline.
FEV1 32% (0.79 L) total lung capacity 86%. DLCO 6%--. 05/02/2025
Trelegy
Follows
Normal alpha-1 antitrypsin level and phenotype FM
Former smoker quit in 2019- uses Vaping pen daily
Obstructive sleep apnea-intolerant to CPAP
Spinal stenosis
Mild and aortic regurgitation
Incomplete right bundle branch block
Colostomy in place
BPH
Osteoarthritis-on 10 mg of prednisone per rheumatology
Assessment and plan:
Critically ill: Remains intubated on mechanical ventilation.
No overnight events
ET tube with no significant hemoptysis
Pulmonary mechanics adequate-no evidence for increased airway resistance
Lung exam relatively clear.
Chest x-ray noted: No pneumothorax. Patchy areas of infiltrate likely from hemorrhage.
-
Spontaneous breathing trial today to extubation.
Wean off sedation
-
Shock: Likely distributive: Resolved
Discontinue IV fluids.
Restart prednisone after extubation-chronically on 10 mg for arthritis per rheumatology.
-
Hemoglobin 9.2. No ongoing bleeding. Continue to follow
-
Abnormal EKG/bradycardia and hypotension:
Hypotension has resolved.
EKG reviewed suggestive of possible ischemia.
Slightly positive troponin.
Normal proBNP
Repeat echocardiogram: Unchanged compared to prior. No regional motion wall abnormalities. Pulmonary hypertension.
Most recent echocardiogram 01/19/2024: Normal LVEF. Normal right ventricular size and function. Mild aortic regurgitation. Moderate TR. Estimated pulmonary artery pressure 57 mmHg. No pericardial effusion.
Cardiology following. Likely will need eventual ischemic workup.
-
From a COPD perspective: Patient not bronchospastic.
Pulmonary mechanics do not suggest bronchospasm or increased airway resistance
Prolonged expiratory phase
Comfortable on current mechanical ventilation set
Continue DuoNebs while intubated
Hold Trelegy while intubated.
-
Monitor for infection
No indication for antibiotic
-
N.p.o. for now
Head of the bed elevation
DVT prophylaxis with SCDs given hemoptysis
-
Case discussed with Dr. Dee bronchoscopies as well as primary team 06/27/2025.
-
Critical care statement: A total of 36 minutes of critical care time was provided for this patient today. This includes management of unstable vital signs, evaluation of the patient at bedside, reviewing the patient's pertinent medical records
including ventilator settings, arterial blood gases, radiographs, microbiology, laboratory evaluations and discussion with primary team, critical care nursing, and respiratory therapy.
Subjective Dataa
Subjective Data
Date of Service:
Date of Service: June 28, 2025
Chief Complaint: Freezer Person Follow Up (Acute hypoxemic respiratory failure-hemoptysis postprocedure)
Subjective:
Remains intubated, on mechanical ventilation.
Appropriate with sedation breaks, following commands.
Review of Systems
General: Other (Unable to obtain due to sedation/intubate)
Objective Data
Data Reviewed
Vital Signs / I&O / Oxygen:
Vital Signs
Temp Pulse Resp BP Pulse Ox
97.9 F 67 12 98/52 99
06/28/25 08:16 06/28/25 07:21 06/28/25 07:21 06/28/25 07:00 06/28/25 07:21
Intake and Output
06/27/25 06/28/25 06/29/25
06:59 06:59 06:59
Intake Total 1189.8 / 1189.8
Output Total 450 / 450
Balance 739.8 / 739.8
SaO2 [A/C] 96
SaO2 99
Nasal Cannula flow liters per 3
minute
Physical Exam
General: Comfortable
HEENT: Normocephalic and Other (ET tube without secretion)
Cardiovascular: S1-S2
Respiratory: Clear and Non-Labored Respirations
GI: Soft
Neurology: Awake, Alert, No Motor Deficits and Other (Unable to provide history due to ET tube in)
Skin: Warm
Labs/Micro/Reports
Lab Data
06/28/25 04:51
06/28/25 04:46
Laboratory Results
06/27/25 06/27/25 06/28/25
15:13 15:54 04:51
PT 15.3 H
INR 1.18
APTT 30.2
pH 7.33 L 7.36
pCO2 53 H 48
pO2 91 162 H
HCO3 27.9 27.1
O2 Delivery Level
Microbiology
06/27/25 15:02 Bronch Right Lower Lobe Gram Stain - Preliminary
06/27/25 15:02 Bronch Right Lower Lobe Fungal Culture - Preliminary
Culture in progress.
Positive cultures are reported as soon as detected.
Final report to follow in four to five weeks.
[2025-06-28 10:18] LABS: ALT (SGPT) 34 U/L (0-50); AST (SGOT) 41 U/L (17-59); Albumin 3.1 g/dl (3.5-5.0); Alkaline Phosphatase 36 U/L (38-126); Total Protein 5.4 g/dl (6.3-8.2)
--- NOTE | 2025-06-28 10:51 | CM ---
Addendum entered by Roro Stephens 06/29/25 11:25:
Patient was transitioned to inpatient on 06/28/25. IMM completed. BURR was previously completed on 06/28/25 am.
Original Note:
Initial assessment completed with . Patient intubated. Patient lives with his in a 3 story plus basement home with B/B on 2nd, 1/2 bath on 1st and 2 steps to enter home. There are 2 sets of stairs to the 2nd and 3rd floor, front and back
of home. Patient generally uses the front stairs with 12 steps and a rail on the left going up. The back stairs has a stair glide that patient tends not to use. [place] patient was independent in ambulation with a RW or SPC. He has a history of
falls. Most recent was approximately 2 months ago. Patient is unsteady on his feet. He does drive. He attends to his own hygiene, showers, medication administration and colostomy care. He is currently on Palliative Care with . He has a
private caregiver for 2 days a week for 6 hours/day. No psychiatric hospitalizations. No service. Does have a HC-POA. PCP is Dr. Willard Pruitt. Pharmacy is [facility] on [facility] in . Discharge POC: TBD. Home with HH vs SNF.
--- NOTE | 2025-06-28 11:46 | PTCARENOTE ---
pt on vent in am , he was placed on a SBT at 0830 and extubated at 0930 , he is alert and oriented to place and person, NSR on monitor , he is now on 4L NC with sats 100% , lungs diminished with loose non prod cough , speech is consulted for swallow
eval , as per and daughter patient drinks several alcoholic drinks daily of whiskey and bourbon , will place on MSAS protocol , Dr Tolentino notified of ETOH abuse
[2025-06-28 11:59] LABS: Troponin I 0.058 ng/ml
--- NOTE | 2025-06-28 14:33 | W.PN.CARDCBS ---
Today's Communication / Plan
-
To be extubated later today
Transient inferior ST elevation which resolved
Echocardiogram is normal
Troponin minimally elevated
Impression / Plan
-
PCP:Dr. Pruitt
Or Rn: Dr. Main
Impression:
Presented for bronchoscopy
Hemoptysis requiring intubation
Bradycardia, hypotension in the setting of hemoptysis
EKG changes, w/ ST elevations inferiorly, resolved
Troponin 0.058
COPD
Lung nodule
Incomplete RBBB
Echo 01/19/2024: EF 63%, mild MR, mild AR, mod TR, estimated PAP 57 mmHg
Echocardiogram 06/27/2025: Ejection fraction 55 to 60% with no regional wall motion abnormalities noted
Plan:
He had transient inferior ST elevation which resolved and echocardiogram was normal
He is to be extubated later today
Discussed with nursing at bedside as well as flight operations specialist
HPI: Aleksandr is an 80-year-old male with past medical history of COPD, lung nodule, and incomplete RBBB. Presented to [facility] for robotic guided bronchoscopy for biopsy of right lower lobe pulmonary nodule. Procedure was complicated by severe
hemoptysis/bleeding. With hemoptysis, patient became hypotensive and bradycardic with heart rate into the 30s. Possible heart block noted. He required epinephrine and thrombin and clots were suctioned. EKG checked at the time of the event and
showed sinus rhythm with ST elevations noted in leads II, III, and aVF. T wave inversions noted laterally. Improved on repeat EKG. Bleeding controlled and patient improved w/ stabilization in HR and BP. Cardiology consulted given EKG changes.
Patient remains intubated at this time, but reports he has no chest pain.
Progress Note - Or Rn
Subjective
Date of Service: June 28, 2025
No chest pain or shortness of breath. Remains on ventilator.
Objective
Labs:
06/28/25 04:51
06/28/25 04:46
Labs
Hgb 9.2 g/dL (13.0-18.0) L 06/28/25 04:51
Hct 27.2 % (39.0-52.0) L 06/28/25 04:51
Plt Count 154 10^3/uL (130-400) 06/28/25 04:51
PT 15.3 Sec (11.4-14.6) H 06/27/25 15:13
INR 1.18 06/27/25 15:13
APTT 30.2 Sec (23.4-35.0) 06/27/25 15:13
Sodium 135 mmol/L (135-145) 06/28/25 04:46
Potassium 4.7 mmol/L (3.5-5.1) 06/28/25 04:46
BUN 23 mg/dl (9-20) H 06/28/25 04:46
Creatinine 0.7 mg/dL (0.7-1.3) 06/28/25 04:46
Glucose 111 mg/dl (70-99) H 06/28/25 04:46
Troponins
06/27/25 06/27/25 06/28/25
15:13 18:36 11:07
Troponin I 0.025 0.044 H* D 0.058 H*
Vital Signs and I&O:
Vital Signs
Temp Pulse Resp BP Pulse Ox
98.5 F 83 14 122/97 99
06/28/25 12:13 06/28/25 13:15 06/28/25 13:15 06/28/25 13:15 06/28/25 12:15
Vital Signs
Temp Pulse Resp BP Pulse Ox
98.5 F 83 14 122/97 99
06/28/25 12:13 06/28/25 13:15 06/28/25 13:15 06/28/25 13:15 06/28/25 12:15
Intake & Output
06/26/25 06/27/25 06/28/2525
06:59 06:59 06:59 06:59
Intake Total 1189.8 / 1275.5 571.4 / 571.4
Output Total 450 / 450
Balance 739.8 / 825.5 571.4 / 571.4
Physical Exam
Physical Exam
General: Well developed, well nourished in NAD.
Neck: Supple, no JVD, HJR, carotids +2 B/L, no bruits bilaterally.
Heart: Non displaced PMI, RRR, no murmurs, No S3, S4, no rubs.
Lungs: Scattered rhonchi
Extremities: No clubbing, cyanosis or edema bilaterally.
Neuro: Grossly nonfocal, awake, alert and oriented x3.
[2025-06-28] MEDS: DELTASONE 10 MG PO (14:42)
--- NOTE | 2025-06-28 14:52 | PTCARENOTE ---
pt currently oob in chair , he dose have difficulty clearing his oral secretions he was taken to have a VSE at 1400 , has not voided , for shift , 275 with a bladder scan
--- NOTE | 2025-06-28 15:11 | W.PN.UPDATE ---
Update Note
Progress Note Update
Regular patient has chronic swallowing difficulties.
Underwent speech evaluation-recommended barium swallow.
Patient has significant aspiration risk. Recommending NPO.
Discussed with patient and he knows about his swallowing dysfunction. He is willing to take risk.
He has been eating at home regular food and would like to transition to that.
Patient has been on palliative care in the past.
He understands risk of aspiration pneumonia.
Will update also his CODE STATUS to DNR which he was prior to admission for the procedure.
Discontinue nebulizers-start inhalers
Continue secretion clearance interventions
Restart outpatient regimen azithromycin Friday-Friday and Friday for anti-inflammatory properties.
Transfer to [facility]
Lung biopsy pathology still pending
Pulmonary will follow
--- NOTE | 2025-06-28 15:34 | PTOTSP ---
Dysphagia Evaluation
Patient with a history of moderate-severe pharyngeal dysphagia per video swallow study 09/17/2023 and is at an acute elevated risk for worsened dysphagia given recent bronchoscopy with massive hemoptysis and intubation from 06/27 to 06/28 with size 9
ETT. Signs concerning for aspiration observed with thin liquids and solids during this evaluation. Repeat video swallow study recommended to assess oral/pharyngeal swallow, r/o silent aspiration, and further develop treatment plan.
Recommend:
1. NPO with ice chips as part of Aspiration Risk Hydration Protocol and medications in puree. (Patient requested to continue baseline oral diet understanding risks/complications of aspiration.)
2. Oral care 3x daily
3. Video swallow study
--- NOTE | 2025-06-28 16:12 | PTCARENOTE ---
pt now written for telemetry , code status has changed to DNR he spoke with Dr Tolentino and is now able to have a regular diet ,
--- NOTE | 2025-06-28 16:37 | PTOTSP ---
Video Swallow Examination
Large bridging anterior osteophytes at C4-5, C5-6 and C6-7 causing impingement on the posterior hypopharynx and upper cervical esophagus. This protrusion obstructed epiglottic inversion and bolus flow resulting in pharyngeal stasis. Consistent trace
laryngeal penetration with eventual aspiration of thin and mildly thick liquids arose from this residue. Trace penetration of moderately thick liquids that likely would have aspirated with further trials. Silent aspiration of a large amount of
pudding. Patient is at risk for chronic aspiration despite diet modifications, and elevated risk for choking with solids.
Recommend:
1. NPO safest but patient commented on wanting to eat and felt he has been handling it to date.
2. If patient wishes to continue eating, would recommend single sips of thin liquid and limit solids to IDDSI 5/minced and moist duet to choking risk.
3. Multiple dry swallows
4. Intermittent throat clear.
5. Diligent oral care.
6. ST therapy is not indicated given long-standing nature of dysphagia that is not amenable to therapy and consistency with study findings.
[2025-06-28] MEDS: SYMBICORT 160/4.5 MCG INHALER 2 PUFF INH (19:25)
[2025-06-29] VITALS (8 sets, daily range): BP systolic 120–165; BP diastolic 56–84; PULSE 72–75; O2SAT 94; BMI 18.1
[2025-06-29 04:40] LABS: Hematocrit 30.2 % (39.0-52.0); Hemoglobin 10.1 g/dL (13.0-18.0); Mean Corp Hgb Conc. 33.4 g/dL (33.0-37.0); Mean Corpuscular Volume 93.5 fL (80.0-94.0); Platelet Count 161 10^3/uL (130-400); Red Cell Dist. Width 13.6 % (11.5-14.5)
[2025-06-29 05:06] LABS: Blood Urea Nitrogen 25 mg/dl (9-20); Calcium 8.3 mg/dl (8.4-10.2); Carbon Dioxide 28 mmol/L (22-30); Chloride 102 mmol/L (98-107); Estimated Creatinine Clearance 57 ml/min; Glucose 90 mg/dl (70-99); Magnesium 2.1 mg/dl (1.6-2.3); Potassium 4.1 mmol/L (3.5-5.1); Sodium 134 mmol/L (135-145); eGFR > 60.00
[2025-06-29 05:31] LABS: Troponin I 0.046 ng/ml
[2025-06-29] MEDS: SPIRIVA RESPIMAT 2.5 MCG 2 PUFF INH (07:15)
[2025-06-29] MEDS: SYMBICORT 160/4.5 MCG INHALER 2 PUFF INH (07:15)
--- NOTE | 2025-06-29 07:35 | W.PN.HOSP.TC ---
Addendum entered and electronically signed by Latoya Colon MD 06/30/25 04:26:
Acute Blood Loss Anemia
H&H otherwise stable during stay, trending up, no need for transfusion
Original Note:
Today's Communication/Plan
-
discharge
Assessment / Plan
Assessment / Plan
Physical Exam
General: no acute distress, appears comfortable
HEENT: NormoCephalic, Anicteric, stable respiratory status 4L at rest sitting up in chair
Respiratory: Clear to auscultation b/l
Cardiac: S1/S2 and Regular Rhythm, no murmurs/rubs/gallops
Abd: soft nontender bowel sounds present
Neuro: AOx3 conversant coherent
Psych: Calm
80M COPD former smoker RLL nodule Vasculitis Depression here for bronchoscopy nodule bx complicated by severe hemoptysis admitted to ICU intubated for further evaluation treatment. Procedure was further complicated with EKG changes transient
inferior ST elevation and subsequent Troponin elevation.
Massive hemoptysis during routine bronchoscopy for RLL nodule
- required Epi/Thrombin during procedure to control bleeding; also received Ephedra/Epi/TXA by Anesthesiology
- Intubated/sedated transferred to ICU
- ICU consult appreciated POD#1 did well w/ spontaneous breathing trials and was later extubated to baseline 4L NC supplementation
- Speech VSE eval appreciated high risk for aspiration recommended NPO, patient however aware of swallowing dysfunction/associate risk and wishes to continue with regular diet.
- H&H stable
- pathology nodule pending
Bradycardia, transient inferior ST elevations during procedure
Troponin Elevation suspect Non-ischemic Myocardial Injury
- EKG with 1st degree AV block
- ECHO appreciated EF 55-60% mild moderate AR moderate Severe Tricuspid regurgitation
- Troponin trended to peak 0.058 since trended down
- Chest Pain free
- Cardio eval appreciated stable cardiac status no need for inpt ischemic work up
Hypophosphatemia
- repleted
Hx of COPD baseline oxygen supplementation 3-4L as per family
Hx of Former smoker
Hx Vasculitis
-home azithromycin and steroid restarted
Leukocytosis
-possibly stress reactive vs steroids
-consistently afebrile
-outpt follow up CBC with primary recommended
PT/OT eval appreciated patient exhibited significant dyspnea desaturation 80s while on 4L attempting ambulation to bathroom with walker, recommended 24/7 care. Hospitalist discussed recommendation with patient and patient's Halle, offered
additional day stay for further evaluation/treatment. Discussed that it was possible patient just needed additional time to recuperate from recent procedure/intubation. Patient however adamant that he wants to go home, refusing to stay another
day. Patient AO x 3 at capacity to make his own medical decisions. Discharge subsequently prepared as per patient's wishes.
DVT ppx: SCDs
Code: Full
Discussed with patient and patient's Halle (retired RN)
Total Time Preparing Discharge __40 minutes including examination of the patient, summary of the hospital stay, instructions for continuing care to all relevant caregivers; and preparation of discharge records, prescriptions, and referral
forms if necessary.
Anticipated Discharge: Today
Subjective/Interval History
-
Date of Service: June 29, 2025
No acute distress, sitting up comfortably in chair. Stable respiratory status on 4L. Patient reports overall feeling well. Denies new acute issues. Eager to go home.
Objective Data
-
Labs:
Laboratory Results
06/29/25
04:19
WBC 15.4 H
Hgb 10.1 L
Hct 30.2 L
Plt Count 161
Sodium 134 L
Potassium 4.1
Chloride 102
Carbon Dioxide 28
BUN 25 H
Creatinine 0.8
Glucose 90
Calcium 8.3 L
Vital Signs:
Vital Signs
Temp Pulse Resp BP Pulse Ox
97.9 F 72 16 135/65 96
06/29/25 07:30 06/29/25 07:19 06/29/25 07:19 06/29/25 04:02 06/29/25 07:19
I&O
06/28/25 06/29/25 06/30/25
06:59 06:59 06:59
Intake Total 1189.8 / 1275.5 1181.4 / 1181.4
Output Total 450 / 450 600 / 600
Balance 739.8 / 825.5 581.4 / 581.4
--- NOTE | 2025-06-29 08:00 | PTCARENOTE ---
Assumed care of pt at 0715 following shift report. Pt awake and resting quietly in bed. Denies complaints. Physical assessment completed as documented. Tele level of care. O2 at 4l/min w/ POx mid 90's. Pt assisted OOB to chair w/ use of SPC and 2
staff supervision/assist. Pox down to mid 80's w/ increased activity and MARADIAGA noted. Pox improved to mid 90's w/ rest. Pt noted to have occasional harsh cough productive of rust/brown thick sputum. Pt using [place] independently. Pt assisted w/ AM
hygiene and pt sitting in chair eating breakfast. Pt verbalizing intention to 'go home today' and reports hired caregiver will be providing transportation. Call hilario w/in pt reach. Safe environment maintained.
[2025-06-29] MEDS: ZITHROMAX 250 MG PO (08:04)
[2025-06-29] MEDS: DELTASONE 10 MG PO (08:04)
--- NOTE | 2025-06-29 08:33 | W.PN.INTV ---
Today's Communication / Plan
Recommendations
Continue inhalers
Oxygen supplementation
Increase activity as able
Continue prednisone for arthritis
Wait for cardiac evaluation
From pulmonary perspective okay to discharge if no need for ischemic workup in the inpatient setting
Sign off
Assessment
-
80-year-old man with past medical history noted. Admitted from the bronchoscopy suite. Underwent robotic bronchoscopy complicated by massive hemoptysis requiring intubation mechanical ventilation. Discussed with Dr. Dee, thrombin,
epinephrine and chilled saline were instilled in the right lower lobe. Able to achieve control of hemorrhage. Patient did have hypotension, bradycardia and EKG changes. Patient remained intubated after the procedure for workup.
Massive xdenbqnpwf-pioulxlsle-cryjxgatvffo from right lower lobe biopsy via robotic bronchoscopy
Resolved
Hypoxemic respiratory failure secondary to above requiring intubation and mechanical ventilation
Extubated 06/28/2025
Shock/abaejhrfpbb-mrijzzdxdtye-eeyyuutt
Abnormal EKG-rule out acute coronary syndrome.
Conditions present prior admission:
COPD-emphysema phenotype-severe/3 L of supplemental oxygen at baseline.
FEV1 32% (0.79 L) total lung capacity 86%. DLCO 6%--. 05/02/2025
Trelegy
Follows
Normal alpha-1 antitrypsin level and phenotype FM
Former smoker quit in 2019- uses Vaping pen daily
Obstructive sleep apnea-intolerant to CPAP
Spinal stenosis
Mild and aortic regurgitation
Incomplete right bundle branch block
Colostomy in place
BPH
Osteoarthritis-on 10 mg of prednisone per rheumatology
Assessment and plan:
-
Clinically improved.
Recurrent hemoptysis
Oxygen supplementation at baseline
Not bronchospastic on exam
Patient able to clear secretions has a strong cough effort.
-
Shock: Likely distributive: Resolved
-
Continue prednisone after extubation-chronically on 10 mg for arthritis per rheumatology.
-
Chronic anemia: Stable no evidence for active bleeding.
-
Abnormal EKG/bradycardia and hypotension:
Hypotension has resolved.
EKG - suggestive of possible ischemia.
Slightly positive troponin.
Normal proBNP
Repeat echocardiogram: Unchanged compared to prior. No regional motion wall abnormalities. Pulmonary hypertension.
Most recent echocardiogram 01/19/2024: Normal LVEF. Normal right ventricular size and function. Mild aortic regurgitation. Moderate TR. Estimated pulmonary artery pressure 57 mmHg. No pericardial effusion.
Cardiology following.
May need eventual ischemic workup.
-
From a COPD perspective: Patient not bronchospastic.
Pulmonary mechanics do not suggest bronchospasm or increased airway resistance
Patient states that from the pulmonary perspective he has baseline.
Continue oxygen supplementation usually on 3 L.
Restart inhalers, usually on Trelegy while intubated. While in the hospital on Symbicort/Spiriva.
-
Leukocytosis. Suspect related to stress reaction.
Monitor for infection
No indication for antibiotic
-
Lung biopsy: Pathology reviewed essentially nondiagnostic. Bloody sample.
Cytology pending
This will be followed in the outpatient setting
Unclear if this right lower lobe nodule is malignant. Highly suggestive of it.
Follow up with Dr. North after discharge
-
Patient with julio aspiration on barium swallow and speech evaluation.
Dr. Anderson had extensive discussion with patient regarding this. He states that he understands the risk of aspiration pneumonia, he has been dealing with aspiration issues for quite some.
Regular diet was ordered with thin liquids.
Head of the bed elevation
DVT prophylaxis if he stays in the hospital start pharmacological prophylaxis.
-
Case discussed with Dr. Dee bronchoscopies as well as primary team 06/27/2025.
-
No additional pulmonary recommendations.
At this point I will sign off
Please call with questions, follow-up in the outpatient with Dr. North after discharge.
Subjective Dataa
Subjective Data
Date of Service:
Date of Service: June 29, 2025
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
Subjective:
Patient has no complaints
Currently eating independently
Continues to have intermittent cough and phlegm production-not worsening.
Oxygen requirements at baseline
Denies chest pain
Review of Systems
Cardiopulmonary: Dyspnea (Baseline), Cough and Sputum Production (No further hemoptysis)
Objective Data
Data Reviewed
Vital Signs / I&O / Oxygen:
Vital Signs
Temp Pulse Resp BP Pulse Ox
97.9 F 72 16 135/65 96
06/29/25 07:30 06/29/25 07:19 06/29/25 07:19 06/29/25 04:02 06/29/25 07:19
Intake and Output
06/28/25 06/29/25 06/30/25
06:59 06:59 06:59
Intake Total 1189.8 / 1275.5 1181.4 / 1181.4
Output Total 450 / 450 600 / 600
Balance 739.8 / 825.5 581.4 / 581.4
SaO2 [CPAP/PSV] 100
SaO2 [A/C] 96
SaO2 96
Nasal Cannula flow liters per 4
minute
Physical Exam
General: Comfortable
HEENT: Normocephalic and Other (ET tube without secretion)
Cardiovascular: S1-S2
Respiratory: Clear and Non-Labored Respirations
GI: Soft and Non Distended
Neurology: Awake, Alert, No Motor Deficits and Other (Unable to provide history due to ET tube in)
Skin: Warm
Labs/Micro/Reports
Lab Data
06/29/25 04:19
06/29/25 04:19
Microbiology
06/27/25 15:02 Bronch Right Lower Lobe Respiratory Culture - Preliminary
Usual Respiratory Anita
06/27/25 15:02 Bronch Right Lower Lobe Gram Stain - Preliminary
06/27/25 15:02 Bronch Right Lower Lobe Fungal Culture - Preliminary
Culture in progress.
Positive cultures are reported as soon as detected.
Final report to follow in four to five weeks.
--- NOTE | 2025-06-29 10:02 | W.PN.CARDCBS ---
Addendum entered and electronically signed by Stas Aponte MD 06/29/25 10:10:
will sign off, call with questions
Original Note:
Today's Communication / Plan
-
stable cardiology status
Impression / Plan
-
PCP:Dr. Pruitt
Automotive Manufacturer: Dr. Main
Impression:
Presented for bronchoscopy
Hemoptysis requiring intubation
Bradycardia, hypotension in the setting of hemoptysis
EKG changes, w/ ST elevations inferiorly, resolved
Troponin peak 0.058, Nonischemic myocardial injury
COPD
Lung nodule
Incomplete RBBB
Echo 01/19/2024: EF 63%, mild MR, mild AR, mod TR, estimated PAP 57 mmHg
Echocardiogram 06/27/2025: Ejection fraction 55 to 60% with no regional wall motion abnormalities noted
Plan:
He appears stable from a cardiology viewpoint
He is on 4 L of oxygen currently but is on 3 L at home. This is likely multifactorial and chronic. There is no obvious CHF.
No treatment for elevated troponin
Discussed with nursing
Stable cardiology status for transfer to telemetry or discharge if oxygen demands are stable
HPI: Aleksandr is an 80-year-old male with past medical history of COPD, lung nodule, and incomplete RBBB. Presented to [facility] for robotic guided bronchoscopy for biopsy of right lower lobe pulmonary nodule. Procedure was complicated by severe
hemoptysis/bleeding. With hemoptysis, patient became hypotensive and bradycardic with heart rate into the 30s. Possible heart block noted. He required epinephrine and thrombin and clots were suctioned. EKG checked at the time of the event and
showed sinus rhythm with ST elevations noted in leads II, III, and aVF. T wave inversions noted laterally. Improved on repeat EKG. Bleeding controlled and patient improved w/ stabilization in HR and BP. Cardiology consulted given EKG changes.
Patient remains intubated at this time, but reports he has no chest pain.
Progress Note - Automotive Manufacturer
Subjective
Date of Service: June 29, 2025
No chest pain or shortness of breath. Currently on 4 L and is on 3 L at home.
Objective
Labs:
06/29/25 04:19
06/29/25 04:19
Labs
Hgb 10.1 g/dL (13.0-18.0) L 06/29/25 04:19
Hct 30.2 % (39.0-52.0) L 06/29/25 04:19
Plt Count 161 10^3/uL (130-400) 06/29/25 04:19
PT 15.3 Sec (11.4-14.6) H 06/27/25 15:13
INR 1.18 06/27/25 15:13
APTT 30.2 Sec (23.4-35.0) 06/27/25 15:13
Sodium 134 mmol/L (135-145) L 06/29/25 04:19
Potassium 4.1 mmol/L (3.5-5.1) 06/29/25 04:19
BUN 25 mg/dl (9-20) H 06/29/25 04:19
Creatinine 0.8 mg/dL (0.7-1.3) 06/29/25 04:19
Glucose 90 mg/dl (70-99) 06/29/25 04:19
Troponins
06/27/25 06/27/25 06/28/25
15:13 18:36 11:07
Troponin I 0.025 0.044 H* D 0.058 H*
06/29/25
04:19
Troponin I 0.046 H*
Vital Signs and I&O:
Vital Signs
Temp Pulse Resp BP Pulse Ox
97.9 F 88 16 120/56 94
06/29/25 07:30 06/29/25 09:15 06/29/25 07:19 06/29/25 09:15 06/29/25 09:15
Vital Signs
Temp Pulse Resp BP Pulse Ox
97.9 F 88 16 120/56 94
06/29/25 07:30 06/29/25 09:15 06/29/25 07:19 06/29/25 09:15 06/29/25 09:15
Intake & Output
06/27/25 06/28/25 06/29/25 06/30/25
06:59 06:59 06:59 06:59
Intake Total 1189.8 / 1275.5 1181.4 / 1181.4 240 / 240
Output Total 450 / 450 600 / 600 200 / 200
Balance 739.8 / 825.5 581.4 / 581.4 40 / 40
Physical Exam
Physical Exam
General: Well developed, well nourished in NAD.
Neck: Supple, no JVD, HJR, carotids +2 B/L, no bruits bilaterally.
Heart: Non displaced PMI, RRR, no murmurs, No S3, S4, no rubs.
Lungs: Scattered rhonchi
Extremities: No clubbing, cyanosis or edema bilaterally.
Neuro: Grossly nonfocal, awake, alert and oriented x3.
[2025-06-29] MEDS: NEUTRA-PHOS POWDER PACKET 250 MG PO (11:10)
[2025-06-29] MEDS: PLAQUENIL 200 MG PO (11:10)
--- NOTE | 2025-06-29 11:59 | W.DCSUMMARY ---
Discharge Summary
Discharge Data
Date of Admission: 06/28/25
Date of Discharge: 06/29/25
-
Pending Results: Yes
Additional Pending Results:
Pathology Results RLL pulm nodule biopsy
Discharge Plan
-
Patient Disposition: Home with Home Care
Discharge Diagnosis/Procedures: Right Lower Lobe Nodule Biopsy
Massive uuujhfxvsv-mkfifovili-qmmllypabaqg from right lower lobe biopsy via robotic bronchoscopy-Resolved
Hypoxemic respiratory failure secondary to above requiring intubation and mechanical ventilation Extubated 06/28/2025
Chronic Hypoxic Respiratory Failure requiring 4L nasal cannula supplementation continuously
Condition: Fair
Diet: Regular
Activity: As tolerated and With Walker
Driving Restrictions: Not until seen by your Dr
Bathing Restrictions: None
Blood Work: Repeat CBC, BMP, Phosphate Level with primary care provider in 1 week of discharge
Others Tests: Follow up with Pulmonology for Pathology results
Other Services: VN, PT and OT
Activity Restrictions/Additional Instructions:
Follow up with primary care provider in 1 week of discharge and Pulmonology in 2 weeks.
Referrals:
Willard Pruitt MD [Family Provider, Internal Medicine] - in one week
Igor North MD [Active, Pulmonary Medicine] - in two weeks
Prescriptions:
Continued
celecoxib 200 MG capsule
200 mg PO DAILY
albuterol sulfate 1 PUFF HFA aerosol inhaler
2 puff inhalation PRN PRN (Reason: shortness of breath)
Fish Oil 1,600 MG/5 ML liquid
4,800 mg PO DAILY
azithromycin 250 mg Tablet
250 mg PO MOWEFR
mirtazapine 15 mg Tablet
15 mg PO HS
paroxetine HCl 40 mg Tablet
40 mg PO DAILY
Trelegy Ellipta 200-62.5-25 mcg Blister With Device
1 inh INHALATION DAILY
acetaminophen 325 mg Tablet
650 mg PO Q4HPRN PRN (Reason: Pain) Qty: 90 0RF
prednisone 20 mg tablet
10 mg PO DAILY
Rx Instructions:
60mg PO x 3 days, then 40mg PO x 3 days, then 20mg PO x 3 days
hydroxychloroquine 200 mg Tablet
200 mg PO DAILY
ciclopirox 8 % Solution
1 applic TOPICAL HS
Patient Comments:
toenail
Discharge Orders:
Discharge Patient (As Directed); Ordered 06/29/25
Ordered By: Latoya Colon
Discharge Date and Time
Print Language: ARMENIAN
--- NOTE | 2025-06-29 13:26 | CM ---
Patient has been medically cleared for discharge to home with [facility] RN, PT/OT services. Therapy recommends 24/7 care. Attending spoke with and patient and encouraged recommendation. This CM also reiterated recommendation. expressed
understanding. will transport home. Admission IMM is within the 48 hour time frame of discharge.
--- NOTE | 2025-06-29 14:17 | PTCARENOTE ---
Pt discharged to home. present in room at time d/c instructions reviewed-both pt and his verbalized understanding of instructions. IV access d/c'ed, manufacturing business analyst removed. assisted in gathering pt's belongings. Pt transported by
w/ staff to hospital entrance and assisted into personal vehicle w/ home O2 device present and operational in vehicle. No complaints received or changes noted prior to discharge
--- NOTE | 2025-06-29 14:29 | PN.CDI ---
CDI
- -
CDI:
Physician Documentation Request
Admit Date: 06/28/25 10:34
Dear Doctor Isaiah,
Please review the following and provide your response in the progress notes.
Clinical Indicators:
PN, 06/29
#Massive hemoptysis during routine bronchoscopy for RLL nodule
Laboratory Tests
06/21/25 06/27/25 06/27/25
13:29 15:13 18:36
Hgb 12.8 L 10.4 L 10.1 L
Hct 37.9 L 31.5 L 30.3 L
06/28/25 06/29/25
04:51 04:19
Hgb 9.2 L 10.1 L
Hct 27.2 L 30.2 L
Based on the above and your clinical assessment, please clarify, the most likely condition/diagnosis evaluated, monitored and/or treated?
Acute blood loss anemia
Acute blood loss anemia with baseline chronic anemia (Specify type)
Anemia of chronic disease - indicate if neoplastic disease, CKD or other
Other(please specify)
Use of terms such as suspected, likely, concern for, or probable (associated with a specific diagnosis that is being evaluated, monitored, or treated as if it exists) are acceptable and can be coded in the inpatient setting, when documented at the
time of discharge.
Thank you,
Shira Mueller RN BSN CCDS
CDI Specialist
Please contact via tiger text
Please use your independent medical judgment in providing your response.
--- NOTE | 2025-06-29 14:36 | PN.CDI ---
CDI
- -
CDI:
Physician Documentation Request
Admit Date: 06/28/25 10:34
Dear Doctor Isaiah,
Please review the following and provide your response in the progress notes.
Clinical Indicators:
PN, 06/29
#Massive hemoptysis during routine bronchoscopy for RLL nodule
Laboratory Tests
06/21/25 06/27/25 06/27/25
13:29 15:13 18:36
Hgb 12.8 L 10.4 L 10.1 L
Hct 37.9 L 31.5 L 30.3 L
06/28/25 06/29/25
04:51 04:19
Hgb 9.2 L 10.1 L
Hct 27.2 L 30.2 L
Based on the above and your clinical assessment, please clarify, the most likely condition/diagnosis evaluated, monitored and/or treated?
Acute blood loss anemia
Acute blood loss anemia with baseline chronic anemia (Specify type)
Anemia of chronic disease - indicate if neoplastic disease, CKD or other
Abnormal lab value, clinically insignificant
Other(please specify)
Use of terms such as suspected, likely, concern for, or probable (associated with a specific diagnosis that is being evaluated, monitored, or treated as if it exists) are acceptable and can be coded in the inpatient setting, when documented at the
time of discharge.
Thank you,
Shira Mueller RN BSN CCDS
CDI Specialist
Please contact via tiger text
Please use your independent medical judgment in providing your response.
== END 2025-06-29 14:44 | disposition home health service (06) | DRG 987 ==
LOC: ICU 10:34
PROVIDERS: Internal Medicine; Internal Medicine Critical Care Medicine; Nurse Practitioner Family; Physician Assistant; ADMITTING PHYSICIAN Internal Medicine; CONSULT PHYSICIAN Internal Medicine Cardiovascular Disease; CONSULT PHYSICIAN Internal Medicine Critical Care Medicine; FAMILY PHYSICIAN Internal Medicine
PROC: 0B9F8ZX Drainage of Right Lower Lung Lobe, Via Natural or Artificial Opening Endoscopic, Diagnostic (ICD-10-PCS; 2025-06-27)
PROC: 8E0W8CZ Robotic Assisted Procedure of Trunk Region, Via Natural or Artificial Opening Endoscopic (ICD-10-PCS; 2025-06-27)
PROC: 0BBF8ZX Excision of Right Lower Lung Lobe, Via Natural or Artificial Opening Endoscopic, Diagnostic (ICD-10-PCS; 2025-06-27)
PROC: 0BD68ZX Extraction of Right Lower Lobe Bronchus, Via Natural or Artificial Opening Endoscopic, Diagnostic (ICD-10-PCS; 2025-06-27)
PROC: 0BH18EZ Insertion of Endotracheal Airway into Trachea, Via Natural or Artificial Opening Endoscopic (ICD-10-PCS; 2025-06-27)
PROC: 5A1935Z Respiratory Ventilation, Less than 24 Consecutive Hours (ICD-10-PCS; 2025-06-27)
PROC: 0B9C8ZX Drainage of Right Upper Lung Lobe, Via Natural or Artificial Opening Endoscopic, Diagnostic (ICD-10-PCS; 2025-06-27)
PROC: 0BP1XDZ Removal of Intraluminal Device from Trachea, External Approach (ICD-10-PCS; 2025-06-28)
DX: J95.61 Intraoperative hemorrhage and hematoma of a respiratory system organ or structure complicating a respiratory system procedure (principal); J96.01 Acute respiratory failure with hypoxia; I5A Non-ischemic myocardial injury (non-traumatic); R04.2 Hemoptysis; R57.9 Shock, unspecified; D62 Acute posthemorrhagic anemia; J43.9 Emphysema, unspecified; R91.1 Solitary pulmonary nodule; G47.33 Obstructive sleep apnea (adult) (pediatric); M19.90 Unspecified osteoarthritis, unspecified site; N40.0 Benign prostatic hyperplasia without lower urinary tract symptoms; F32.A Depression, unspecified; I44.0 Atrioventricular block, first degree; R00.1 Bradycardia, unspecified; Y65.8 Other specified misadventures during surgical and medical care; Y92.530 Ambulatory surgery center as the place of occurrence of the external cause; I45.10 Unspecified right bundle-branch block; E83.39 Other disorders of phosphorus metabolism; D72.829 Elevated white blood cell count, unspecified; I08.3 Combined rheumatic disorders of mitral, aortic and tricuspid valves; Z96.653 Presence of artificial knee joint, bilateral; Z96.642 Presence of left artificial hip joint; Z66 Do not resuscitate; Z87.891 Personal history of nicotine dependence; Z79.1 Long term (current) use of non-steroidal anti-inflammatories (NSAID); Z79.51 Long term (current) use of inhaled steroids; Z79.52 Long term (current) use of systemic steroids; Z82.49 Family history of ischemic heart disease and other diseases of the circulatory system
CPT/HCPCS: 36415; 71045; 74230; 76000; 80048; 80053; 82248; 82805; 83735; 83880; 84100; 84478; 84484; 85027; 85610; 85730; 87015; 87070; 87102; 87116; 87205; 88112; 88173; 88305; 88333; 92610; 92611; 93005; 93306; 94002; 94003; 94640; 97163; 97167; 97530; 97535; C1887

== ENCOUNTER → 2025-07-08 14:25 | Outpatient (REF) | payer MEDICARE, OTHER, SELFPAY ==
[2025-07-08 15:12] LABS: Hematocrit 34.9 % (39.0-52.0); Hemoglobin 11.3 g/dL (13.0-18.0); Mean Corp Hgb Conc. 32.4 g/dL (33.0-37.0); Mean Corpuscular Volume 93.8 fL (80.0-94.0); Nucleated Red Blood Cells % 0 % (-); Platelet Count 330 10^3/uL (130-400); Red Cell Dist. Width 13.1 % (11.5-14.5)
[2025-07-08 15:57] LABS: Blood Urea Nitrogen 34 mg/dl (9-20); Calcium 9.4 mg/dl (8.4-10.2); Carbon Dioxide 35 mmol/L (22-30); Chloride 94 mmol/L (98-107); Glucose 94 mg/dl (70-99); Potassium 4.3 mmol/L (3.5-5.1); Sodium 134 mmol/L (135-145); eGFR > 60.00
== END ==
LOC: REG 14:25
PROVIDERS: ATTENDING PHYSICIAN Internal Medicine; REFERRING PHYSICIAN Internal Medicine Critical Care Medicine
DX: R91.8 Other nonspecific abnormal finding of lung field (principal); R06.02 Shortness of breath; Z87.891 Personal history of nicotine dependence; J96.11 Chronic respiratory failure with hypoxia
CPT/HCPCS: 36415; 80048; 82955; 85025

== ENCOUNTER → 2025-07-29 12:40 | Outpatient (REF) | payer MEDICARE, OTHER, SELFPAY | LOC: RAD 12:40 | PROVIDERS: ATTENDING PHYSICIAN Internal Medicine Critical Care Medicine; FAMILY PHYSICIAN Internal Medicine | DX: R91.8 Other nonspecific abnormal finding of lung field (principal) | CPT/HCPCS: 71250 ==